=== PATIENT | female | born 1955 | race Caucasian/White ===

== ENCOUNTER → 2016-08-30 | Outpatient (CLI) | payer MEDICARE ==
[2016-08-30 09:20] LABS: ALT 27 U/L (9-52); AST 15 U/L (14-36); Alkaline Phosphatase 88 U/L (38-126); Anion Gap 9 mmol/L; Blood Urea Nitrogen 15 mg/dL (7-17); Calcium 9.2 mg/dL (8.4-10.2); Carbon Dioxide 30 mmol/L (22-30); Chloride 102 mmol/L (98-107); Cholesterol 153 mg/dL (<200); Glucose 213 mg/dL (74-99); HDL Cholesterol 44 mg/dL (40-60); Non-African American GFR(MDRD) >60 (>60 ml/min/1.73 sqM); Sodium 141 mmol/L (137-145); Total Bilirubin 0.9 mg/dL (0.2-1.3); Total Protein 7.1 g/dL (6.3-8.2); Triglycerides 208 mg/dL (<150)
== END | disposition home or self-care (01) ==
LOC: LABWHC1 08:26
PROVIDERS: ATTEND Internal Medicine Cardiovascular Disease
DX: E11.65 Type 2 diabetes mellitus with hyperglycemia (principal); E78.2 Mixed hyperlipidemia
CPT/HCPCS: 36415; 80053; 80061; 82043; 84443

== ENCOUNTER → 2016-12-05 | Outpatient (CLI) | payer MEDICARE ==
--- NOTE | 2016-12-05 15:41 | FL ---
EXAMINATION TYPE: FL barium enema w air contrast DATE OF EXAM: 12/05/2016 CLINICAL HISTORY: R19.5 positive hemacult R19.4 change in bowel habits TECHNIQUE: Air contrast barium enema study is performed. Barium was instilled into the colon from the rectum to the cecum with reflux into a normal-appearing appendix. COMPARISON: None. FINDINGS: Human Resources File Clerk view of the abdomen shows overall non-obstructive bowel gas pattern.No evidence of a ny mass or polyp, obstructing or constricting lesion throughout the colon. No significant diverticul ar disease is noted.Appendix was filled and appeared normal. No reflux into the terminal ileum. IMPRESSION: Normal barium enema study.
== END | disposition home or self-care (01) ==
LOC: RADFLMAIN 07:41
PROVIDERS: ATTEND Surgery
DX: R19.4 Change in bowel habit (principal); R19.5 Other fecal abnormalities; Z88.0 Allergy status to penicillin; Z88.2 Allergy status to sulfonamides; Z88.8 Allergy status to other drugs, medicaments and biological substances
CPT/HCPCS: 74280

== ENCOUNTER → 2017-01-10 | Outpatient (CLI) | payer MEDICARE ==
[2017-01-10 14:57] LABS: Aty Lym Flag Marked; CH 31.1; HCT 43.3 % (34.0-46.0); HDW 3.21; HGB 14.4 gm/dL (11.4-16.0); MCHC 33.3 g/dL (31.0-37.0); MCV 86.9 fL (80.0-100.0); MPO Flag Slight; Mean Platelet Volume 7.5; RBC 4.98 m/uL (3.80-5.40); RDW 14.4 % (11.5-15.5); WBC 5.4 k/uL (3.8-10.6); WBC (Perox) 5.23
[2017-01-10 15:21] LABS: Add Differential Manual Differential
[2017-01-10 15:22] LABS: Nucleated Red Blood Cells 0 /100 WBC (0-0); Polychromasia Present; Total Cells Counted 100
== END | disposition home or self-care (01) ==
LOC: LABWHC1 14:21
PROVIDERS: ATTEND Surgery
DX: K57.30 Diverticulosis of large intestine without perforation or abscess without bleeding (principal)
CPT/HCPCS: 36415; 85025

== ENCOUNTER → 2017-02-13 | Outpatient (CLI) | payer MEDICARE ==
[2017-02-13 18:19] LABS: Blood Urea Nitrogen 15 mg/dL (7-17); Non-African American GFR(MDRD) >60 (>60 ml/min/1.73 sqM)
--- NOTE | 2017-02-13 19:52 | CT ---
EXAMINATION TYPE: CT abdomen pelvis w con DATE OF EXAM: 02/13/2017 HISTORY: LLQ pain x6 months. Diverticulitis per order. CT DLP: 1041mGycm Automated Exposure Control for Dose Reduction was Utilized. CONTRAST: CT scan of the abdomen and pelvis is performed with IV Contrast, patient injected with 100 mL of Omni paque 300. COMPARISON: CT abdomen and pelvis January 27, 2015. FINDINGS: LUNG BASES: Coronary stent RCA distribution is redemonstrated. Emphysematous change in lung bases is seen. Small right basilar nodule is not clearly identified on current study. LIVER/GB: Contracted gallbladder is seen this is presumed product of recent meal ingestion as debris and contrast filled stomach is noted. PANCREAS: No significant abnormality is seen. SPLEEN: No significant abnormality is seen. ADRENALS: No significant abnormality is seen. KIDNEYS: No significant abnormality is seen. BOWEL: Oral contrast reaches level of terminal ileum. There is no suspicious small or large bowel dil atation. There are few diverticula in the sigmoid colon. There is no CT evidence for acute diverticul itis. There is 1.6 cm diverticulum medially along second portion of duodenum. UTERUS/ADNEXA: Uterus is surgically absent or markedly atrophic in appearance. Left-sided pelvic phle boliths are noted. LYMPH NODES: No greater than 1cm abdominal or pelvic lymph nodes are appreciated. OSSEOUS STRUCTURES: There is mild multilevel spurring in the visualized spine. OTHER: There is mild to moderate mixed plaque in the abdominal aorta extending into pelvic branch ves sels. Soft tissue nodules in the anterior abdominal wall likely product of subcutaneous medicine inje ction are redemonstrated. IMPRESSION: No significant new or acute finding is seen to account for patient's clinical symptoms.
== END | disposition home or self-care (01) ==
LOC: RADCTMAIN 17:38
PROVIDERS: ATTEND Surgery
DX: K57.53 Diverticulitis of both small and large intestine without perforation or abscess with bleeding (principal)
CPT/HCPCS: 82565; 84520; 74177; 36415; Q9967

== ENCOUNTER → 2017-03-21 | Outpatient (CLI) | payer MEDICARE ==
--- NOTE | 2017-03-22 11:43 | MM ---
Reason for exam: screening (asymptomatic). Last mammogram was performed 1 year ago. History: Patient is postmenopausal. Family history of premenopausal breast cancer in maternal cousin at age 20. Benign stereotactic core biopsy of the right breast, August 27, 2000. Took estrogen for 5 years. Took progesterone for 5 years. Physical Findings: A clinical breast exam by your physician is recommended on an annual basis and results should be correlated with mammographic findings. MG 3D Screening Mammo W/Cad Bilateral CC and MLO view(s) were taken. Prior study comparison: March 20, 2016, bilateral MG 3d screening mammo w/cad. March 18, 2015, bilateral MG 3d screening mammo w/cad. There are scattered fibroglandular densities. Finding: There are typically benign round calcifications in both breasts. Previous mammotome biopsy in the right breast. There is no discrete abnormality. ASSESSMENT: Benign, BI-RAD 2 RECOMMENDATION: Routine screening mammogram of both breasts in 1 year.
== END | disposition home or self-care (01) ==
LOC: RADMAMWWP 11:08
PROVIDERS: ATTEND Family Medicine
DX: Z12.31 Encounter for screening mammogram for malignant neoplasm of breast (principal)
CPT/HCPCS: 77063; G0202

== ENCOUNTER → 2017-03-21 | Outpatient (CLI) | payer MEDICARE ==
[2017-03-21 11:04] LABS: ALT 37 U/L (9-52); AST 17 U/L (14-36); Alkaline Phosphatase 87 U/L (38-126); Anion Gap 8 mmol/L; Blood Urea Nitrogen 13 mg/dL (7-17); Calcium 9.3 mg/dL (8.4-10.2); Carbon Dioxide 27 mmol/L (22-30); Chloride 109 mmol/L (98-107); Cholesterol 137 mg/dL (<200); Glucose 140 mg/dL (74-99); HDL Cholesterol 39 mg/dL (40-60); Non-African American GFR(MDRD) >60 (>60 ml/min/1.73 sqM); Potassium 4.7 mmol/L (3.5-5.1); Sodium 144 mmol/L (137-145); Total Bilirubin 0.7 mg/dL (0.2-1.3); Total Protein 6.4 g/dL (6.3-8.2)
[2017-03-21 14:34] LABS: Urine Creatinine 76.3 mg/dL
== END | disposition home or self-care (01) ==
LOC: LABWHC1 09:39
PROVIDERS: ATTEND Internal Medicine Endocrinology, Diabetes & Metabolism
DX: E11.65 Type 2 diabetes mellitus with hyperglycemia (principal)
CPT/HCPCS: 36415; 80053; 80061; 82043; 82570; 83036

== ENCOUNTER → 2017-11-26 | Outpatient (CLI) | payer MEDICARE ==
[2017-11-26 10:19] LABS: ALT 34 U/L (9-52); AST 18 U/L (14-36); Cholesterol 159 mg/dL (<200); HDL Cholesterol 42 mg/dL (40-60); LDL Cholesterol,Calculated 87 mg/dL (0-99); Triglycerides 150 mg/dL (<150)
== END ==
LOC: LABWHC1 09:16
PROVIDERS: ATTEND Internal Medicine Cardiovascular Disease
DX: E78.2 Mixed hyperlipidemia (principal)
CPT/HCPCS: 36415; 80061; 84450; 84460

== ENCOUNTER → 2018-03-22 | Outpatient (CLI) | payer MEDICARE ==
--- NOTE | 2018-03-25 11:44 | MM ---
Reason for exam: screening (asymptomatic). Last mammogram was performed 1 year ago. History: Patient is postmenopausal. Family history of premenopausal breast cancer in maternal cousin at age 20. Benign stereotactic core biopsy of the right breast, August 27, 2000. Took estrogen for 5 years. Took progesterone for 5 years. Physical Findings: A clinical breast exam by your physician is recommended on an annual basis and results should be correlated with mammographic findings. MG 3D Screening Mammo W/Cad Bilateral CC and MLO view(s) were taken. Prior study comparison: March 21, 2017, bilateral MG 3d screening mammo w/cad. March 20, 2016, bilateral MG 3d screening mammo w/cad. There are scattered fibroglandular densities. No significant changes when compared with prior studies. ASSESSMENT: Benign, BI-RAD 2 RECOMMENDATION: Routine screening mammogram of both breasts in 1 year.
== END ==
LOC: RADMAMWWP 08:49
PROVIDERS: ATTEND Family Medicine
DX: Z12.31 Encounter for screening mammogram for malignant neoplasm of breast (principal)
CPT/HCPCS: 77063; 77067

== ENCOUNTER → 2018-06-21 | Outpatient (CLI) | payer MEDICARE ==
[2018-06-21 16:51] LABS: Albumin 4.2 g/dL (3.80-4.90); Albumin/Globulin Ratio 2.1 (1.60-3.17); Anion Gap 6.3 mmol/L (4.00-12.00); Calcium 9.3 mg/dL (8.7-10.3); Carbon Dioxide 27.7 mmol/L (21.6-31.8); LDL Cholesterol,Calculated 78.4 mg/dL (0.0-131.0); Potassium 4.9 mmol/L (3.5-5.5); Total Bilirubin 0.9 mg/dL (0.3-1.2); Total Protein 6.2 g/dL (6.2-8.2); VLDL Calculation 31.6 mg/dL (5.00-40.00)
[2018-06-21 19:52] LABS: Hemoglobin A1C 6.4 % (4.0-6.0)
== END | disposition home or self-care (01) ==
LOC: LABWHC1 10:18
PROVIDERS: ATTEND Internal Medicine Endocrinology, Diabetes & Metabolism
DX: E78.2 Mixed hyperlipidemia (principal); E11.65 Type 2 diabetes mellitus with hyperglycemia
CPT/HCPCS: 36415; 80053; 80061; 82043; 82570; 83036; 84443

== ENCOUNTER → 2018-09-23 | Outpatient (CLI) | payer MEDICARE ==
[2018-09-23 16:11] LABS: Albumin 4.3 g/dL (3.80-4.90); Albumin/Globulin Ratio 2.26 (1.60-3.17); Anion Gap 7.1 mmol/L (4.00-12.00); Carbon Dioxide 26.9 mmol/L (21.6-31.8); Globulin 1.9 g/dL (1.6-3.3); LDL Cholesterol,Calculated 77.6 mg/dL (0.0-131.0); Potassium 4.5 mmol/L (3.5-5.5); Total Bilirubin 0.8 mg/dL (0.2-1.2); Total Protein 6.2 g/dL (6.2-8.2); VLDL Calculation 29.4 mg/dL (5.00-40.00)
[2018-09-23 19:40] LABS: Hemoglobin A1C 6.2 % (4.0-6.0)
== END | disposition home or self-care (01) ==
LOC: LABWHC1 08:56
PROVIDERS: ATTEND Internal Medicine Endocrinology, Diabetes & Metabolism
DX: E11.65 Type 2 diabetes mellitus with hyperglycemia (principal)
CPT/HCPCS: 36415; 80053; 80061; 82043; 82570; 83036; 84443

== ENCOUNTER → 2019-05-01 | Outpatient (CLI) | payer MEDICARE ==
--- NOTE | 2019-05-02 14:08 | MM ---
Reason for exam: screening (asymptomatic). Last mammogram was performed 1 year and 1 month ago. History: Patient is postmenopausal. Family history of premenopausal breast cancer in maternal cousin at age 20. Benign stereotactic core biopsy of the right breast, August 27, 2000. Took estrogen for 5 years. Took progesterone for 5 years. Physical Findings: A clinical breast exam by your physician is recommended on an annual basis and results should be correlated with mammographic findings. MG 3D Screening Mammo W/Cad Bilateral CC and MLO view(s) were taken. Prior study comparison: March 22, 2018, bilateral MG 3d screening mammo w/cad. March 21, 2017, bilateral MG 3d screening mammo w/cad. There are scattered fibroglandular densities. Previous mammotome biopsy in the right breast. No significant changes when compared with prior studies. ASSESSMENT: Benign, BI-RAD 2 RECOMMENDATION: Routine screening mammogram of both breasts in 1 year.
== END | disposition home or self-care (01) ==
LOC: RADMAMWWP 14:53
PROVIDERS: ATTEND Family Medicine
DX: Z12.31 Encounter for screening mammogram for malignant neoplasm of breast (principal)
CPT/HCPCS: 77063; 77067

== ENCOUNTER → 2019-05-16 | Outpatient (CLI) | payer MEDICARE ==
[2019-05-16 18:15] LABS: African American GFR (CKD) 91.6 (60.0-200.0); Albumin 4.3 g/dL (3.80-4.90); Albumin/Globulin Ratio 2.69 (1.60-3.17); Anion Gap 8.8 mmol/L (4.00-12.00); BUN/Creat Ratio 21.25 Ratio (12.00-20.00); Carbon Dioxide 25.2 mmol/L (21.6-31.8); Globulin 1.6 g/dL (1.6-3.3); LDL Cholesterol,Calculated 63.8 mg/dL (0.0-131.0); Potassium 4.5 mmol/L (3.5-5.5); Total Bilirubin 0.8 mg/dL (0.3-1.2); Total Protein 5.9 g/dL (6.2-8.2); VLDL Calculation 38.2 mg/dL (5.00-40.00)
[2019-05-16 20:03] LABS: Hemoglobin A1C 6.5 % (4.0-6.0)
== END | disposition home or self-care (01) ==
LOC: LABWHC1 07:58
PROVIDERS: ATTEND Internal Medicine Endocrinology, Diabetes & Metabolism
DX: E11.65 Type 2 diabetes mellitus with hyperglycemia (principal)
CPT/HCPCS: 36415; 80053; 80061; 82043; 82570; 83036; 84443

== ENCOUNTER → 2020-01-05 | Outpatient (CLI) | payer MEDICARE ==
[2020-01-05 15:26] LABS: African American GFR (CKD) 90.9 (60.0-200.0); Albumin 4.3 g/dL (3.80-4.90); Albumin/Globulin Ratio 2.15 (1.60-3.17); Anion Gap 7.1 mmol/L (4.00-12.00); Calcium 9.1 mg/dL (8.7-10.3); Carbon Dioxide 25.9 mmol/L (21.6-31.8); Chol/HDL Ratio 4.19; LDL Cholesterol,Calculated 79.2 mg/dL (0.0-131.0); Non-African American GFR(CKD) 78.5 (60.0-200.0); Potassium 4.4 mmol/L (3.5-5.5); Total Bilirubin 0.7 mg/dL (0.2-1.2); Total Protein 6.3 g/dL (6.2-8.2); VLDL Calculation 38.8 mg/dL (5.00-40.00)
[2020-01-05 16:20] LABS: Hemoglobin A1C 7.2 % (4.0-6.0)
[2020-01-05 19:45] LABS: Microalbumin Creatinine Ratio <30 mg/g Creat (0-30)
== END | disposition home or self-care (01) ==
LOC: LABWHC1 10:14
PROVIDERS: ATTEND Internal Medicine Endocrinology, Diabetes & Metabolism
DX: E11.65 Type 2 diabetes mellitus with hyperglycemia (principal)
CPT/HCPCS: 36415; 80053; 80061; 82043; 82570; 83036; 84443

== ENCOUNTER → 2020-03-19 | Outpatient (CLI) | payer MEDICARE ==
--- NOTE | 2020-03-19 10:21 | US ---
EXAMINATION TYPE: US venous doppler duplex LE DATE OF EXAM: 03/19/2020 9:27 AM COMPARISON: NONE CLINICAL HISTORY: R60.0 edema. SIDE PERFORMED: Bilateral TECHNIQUE: The lower extremity deep venous system is examined utilizing real time linear array sonog aixa with graded compression, doppler sonography and color-flow sonography. VESSELS IMAGED: External Iliac Vein (EIV) Common Femoral Vein Deep Femoral Vein Greater Saphenous Vein * Femoral Vein Popliteal Vein Small Saphenous Vein * Proximal Calf Veins (* superficial vessels) Right Leg: Negative for DVT Left Leg: Negative for DVT IMPRESSION: 1. Bilateral lower extremity ultrasound negative for deep venous thrombosis.
== END | disposition home or self-care (01) ==
LOC: RADUSWWP 08:45
PROVIDERS: ATTEND Family Medicine
DX: R60.0 Localized edema (principal); I73.9 Peripheral vascular disease, unspecified
CPT/HCPCS: 93922; 93923; 93970

== ENCOUNTER → 2020-05-19 | Outpatient (CLI) | payer MEDICARE ==
--- NOTE | 2020-05-20 09:18 | MM ---
Reason for exam: additional evaluation requested from prior study. Last mammogram was performed 1 year and 1 month ago. History: Patient is postmenopausal. Family history of premenopausal breast cancer in maternal cousin at age 20. Benign stereotactic core biopsy of the right breast, August 27, 2000. Took estrogen for 5 years. Took progesterone for 5 years. Physical Findings: Nurse did not find any significant physical abnormalities on exam. MG 3D Diag Mammo W/Cad SINGH Bilateral CC and MLO view(s) were taken. Prior study comparison: May 01, 2019, bilateral MG 3d screening mammo w/cad. March 22, 2018, bilateral MG 3d screening mammo w/cad. There are scattered fibroglandular densities. There are benign appearing round calcifications in the right breast. Previous mammotome biopsy in the right breast. There is chronic nodularity in the right breast. There is no discrete abnormality. These results were verbally communicated with the patient and result sheet given to the patient on 05/19/20. ASSESSMENT: Benign, BI-RAD 2 RECOMMENDATION: Routine screening mammogram of both breasts in 1 year.
== END | disposition home or self-care (01) ==
LOC: RADMAMWWP 14:05
PROVIDERS: ATTEND Family Medicine
DX: N60.11 Diffuse cystic mastopathy of right breast (principal); N60.12 Diffuse cystic mastopathy of left breast
CPT/HCPCS: 77066; G0279; 77062

== ENCOUNTER → 2020-07-02 | Outpatient (CLI) | payer MEDICARE ==
[2020-07-02 16:00] LABS: African American GFR (CKD) 78.9 (60.0-200.0); Albumin 4.4 g/dL (3.80-4.90); Albumin/Globulin Ratio 2.44 (1.60-3.17); Anion Gap 4.6 mmol/L (4.00-12.00); BUN/Creat Ratio 14.44 Ratio (12.00-20.00); Calcium 8.7 mg/dL (8.7-10.3); Carbon Dioxide 26.4 mmol/L (21.6-31.8); Chol/HDL Ratio 3.89; Globulin 1.8 g/dL (1.6-3.3); LDL Cholesterol,Calculated 69.8 mg/dL (0.0-131.0); Potassium 4.5 mmol/L (3.5-5.5); Total Bilirubin 0.7 mg/dL (0.3-1.2); Total Protein 6.2 g/dL (6.2-8.2); VLDL Calculation 34.2 mg/dL (5.00-40.00)
[2020-07-02 17:53] LABS: Hemoglobin A1C 6.7 % (4.0-6.0)
[2020-07-02 19:14] LABS: Microalbumin Creatinine Ratio <30 mg/g Creat (0-30)
== END | disposition home or self-care (01) ==
LOC: LABWHC1 09:32
PROVIDERS: ATTEND Internal Medicine Endocrinology, Diabetes & Metabolism
DX: E11.65 Type 2 diabetes mellitus with hyperglycemia (principal)
CPT/HCPCS: 36415; 80053; 80061; 82043; 82570; 83036; 84443

== ENCOUNTER → 2021-01-24 | Outpatient (CLI) | payer MEDICARE ==
[2021-01-24 17:16] LABS: African American GFR (CKD) 90.3 (60.0-200.0); Albumin 4.3 g/dL (3.80-4.90); Albumin/Globulin Ratio 1.95 (1.60-3.17); Anion Gap 6.4 mmol/L (4.00-12.00); BUN/Creat Ratio 12.5 Ratio (12.00-20.00); Calcium 9.3 mg/dL (8.7-10.3); Carbon Dioxide 27.6 mmol/L (21.6-31.8); Chol/HDL Ratio 3.78; Globulin 2.2 g/dL (1.6-3.3); LDL Cholesterol,Calculated 66.6 mg/dL (0.0-131.0); Non-African American GFR(CKD) 77.9 (60.0-200.0); Potassium 5.2 mmol/L (3.5-5.5); Total Bilirubin 0.8 mg/dL (0.2-1.2); Total Protein 6.5 g/dL (6.2-8.2); VLDL Calculation 36.4 mg/dL (5.00-40.00)
[2021-01-24 20:15] LABS: Hemoglobin A1C 6.8 % (4.0-6.0)
== END | disposition home or self-care (01) ==
LOC: LABWHC1 10:45
PROVIDERS: ATTEND Internal Medicine Cardiovascular Disease
DX: E11.65 Type 2 diabetes mellitus with hyperglycemia (principal); E78.2 Mixed hyperlipidemia
CPT/HCPCS: 36415; 80053; 80061; 82043; 82570; 83036; 84443

== ENCOUNTER → 2021-04-11 | Outpatient (CLI) | payer MEDICARE ==
--- NOTE | 2021-04-11 10:01 | CT ---
EXAMINATION TYPE: CT chest wo con DATE OF EXAM: 04/11/2021 COMPARISON: 06/14/2015 HISTORY: Persistent severe asthma CT DLP: 282.6 mGycm, Automated exposure control for dose reduction was used. CONTRAST: None TECHNIQUE: Axial images were obtained at 5 mm thick sections. Reconstructed images are reviewed on [employer] computer in the coronal plane. FINDINGS: Portion of the thyroid visualized is normal. No suspicious lung nodules or focal infiltrates are present. Emphysematous changes are present. No enlarged mediastinal or hilar adenopathy is evident. The ascending aorta diameter at the level o f the main pulmonary artery is 3.0 cm. The main pulmonary artery diameter at the bifurcation is 2.1 cm. Coronary artery calcification is present. Limited CT sections are obtained through the upper abdomen. Abdomen is essentially unremarkable. IMPRESSIONS: 1. COPD.
== END | disposition home or self-care (01) ==
LOC: RADCTMAIN 07:24
PROVIDERS: ATTEND Internal Medicine Pulmonary Disease
DX: J44.9 Chronic obstructive pulmonary disease, unspecified (principal)
CPT/HCPCS: 71250

== ENCOUNTER → 2021-08-25 | Outpatient (CLI) | payer MEDICARE ==
[2021-08-25 15:35] LABS: ALT 21 U/L (8-44); AST 17 U/L (13-35); African American GFR (CKD) 90.3 (60.0-200.0); Albumin 4.5 g/dL (3.8-4.9); Albumin/Globulin Ratio 2.25 (1.60-3.17); Alkaline Phosphatase 94 U/L (41-126); Calcium 9.3 mg/dL (8.7-10.3); Carbon Dioxide 23.8 mmol/L (20.0-27.5); Chloride 108 mmol/L (96-109); Chol/HDL Ratio 4.48 Ratio; Glucose 203 mg/dL (70-110); LDL Cholesterol,Calculated 83.3 mg/dL (0.0-131.0); Non-African American GFR(CKD) 77.9 (60.0-200.0); Potassium 4.9 mmol/L (3.5-5.5); Sodium 144 mmol/L (135-145); Total Protein 6.5 g/dL (6.2-8.2)
[2021-08-25 20:20] LABS: Microalbumin Creatinine Ratio <30 mg/g Creat (0-30); Urine Creatinine 67.1 mg/dL (28.0-217.0)
== END | disposition home or self-care (01) ==
LOC: LABWHC1 09:26
PROVIDERS: ATTEND Internal Medicine Endocrinology, Diabetes & Metabolism
DX: E11.65 Type 2 diabetes mellitus with hyperglycemia (principal)
CPT/HCPCS: 36415; 80053; 80061; 82043; 82570; 83036; 84443

== ENCOUNTER → 2022-03-23 | Outpatient (CLI) | payer MEDICARE ==
[2022-03-23 14:37] LABS: ALT 18 U/L (8-44); AST 18 U/L (13-35); African American GFR (CKD) 77.6 (60.0-200.0); Albumin 4.4 g/dL (3.8-4.9); Albumin/Globulin Ratio 1.91 (1.60-3.17); Alkaline Phosphatase 80 U/L (41-126); BUN/Creat Ratio 14.41 Ratio (12.00-20.00); Calcium 9.4 mg/dL (8.7-10.3); Carbon Dioxide 25.6 mmol/L (20.0-27.5); Chloride 110 mmol/L (96-109); Chol/HDL Ratio 3.25 Ratio; Globulin 2.3 g/dL (1.6-3.3); Glucose 169 mg/dL (70-110); LDL Cholesterol,Calculated 61.6 mg/dL (0.0-131.0); Non-African American GFR(CKD) 66.9 (60.0-200.0); Potassium 5.4 mmol/L (3.5-5.5); Sodium 144 mmol/L (135-145); Total Protein 6.8 g/dL (6.2-8.2)
[2022-03-23 19:37] LABS: Microalbumin Creatinine Ratio <30 mg/g Creat (0-30); Urine Creatinine 82.4 mg/dL (28.0-217.0)
== END | disposition home or self-care (01) ==
LOC: LABWHC1 09:14
PROVIDERS: ATTEND Internal Medicine Cardiovascular Disease
DX: E11.65 Type 2 diabetes mellitus with hyperglycemia (principal); E78.2 Mixed hyperlipidemia
CPT/HCPCS: 36415; 80053; 80061; 82043; 82570; 83036; 84443

== ENCOUNTER 2022-04-04 08:36 | Day surgery (SDC) | payer MEDICARE ==
[~2022-04-04 08:36] MED LIST: LACTATED RINGERS 1,000 ML IV SCH; LIDOCAINE 1% (10MG/ML) FOR IV START INTRADERMA PRN
[2022-04-04 09:27] VITALS: RESP 16; TEMP 96.7
[2022-04-04 09:30] LABS: Glucose,Whole Blood 183 mg/dL (70-110)
[2022-04-04] MEDS ORDERED: LIDOCAINE 2% INJ 20 MG/ML (2 ML VIAL) ONE (09:44)
[2022-04-04] MEDS ORDERED: PROPOFOL 10 MG/ML 20 ML VIAL IV ONE (09:44)
--- NOTE | 2022-04-04 10:12 | P.PCN ---
Date of Procedure: 04/04/22 Procedure(s) Performed: BRIEF HISTORY: Patient is a 67-year-old pleasant female scheduled for an elective colonoscopy as a part of evaluation of lower abdominal pain and intermittent rectal bleeding for the last few months duration. PROCEDURE PERFORMED: Colonoscopy with biopsy. PREOPERATIVE DIAGNOSIS: Lower abdominal pain and intermittent rectal bleeding. IV sedation per Anesthesia. PROCEDURE: After informed consent was obtained, the patient, was brought into the endoscopy unit. IV sedation was administered by Anesthesia under continuous monitoring. Digital rectal examination was normal. Initially the Olympus CF-160 flexible video colonoscope was then inserted in the rectum, gradually advanced into the cecum with moderate difficulty. Careful examination was performed as the scope was gradually being withdrawn. Ileocecal valve and the appendiceal orifice were visualized and appeared normal. Prep was excellent. Mucosa of the cecum, ascending colon, transverse colon, descending colon, sigmoid colon, and rectum appeared normal. In the proximal rectum there was a 3 mm polyp that was removed by cold biopsy. Scattered sigmoid diverticulosis seen. Retroflexion was performed in the rectum and small internal hemorrhoids were seen. The patient tolerated the procedure well. IMPRESSION: 3 mm rectal polyp status post cold biopsy Scattered sigmoid diverticulosis Small internal hemorrhoids RECOMMENDATIONS: Findings of this examination were discussed with the patient the use family. She was advised to follow with the biopsy results. If the biopsy reveals adenoma she can have a repeat colonoscopy in 5 years. The meantime she'll be on a high-fiber diet and take fiber supplements a regular basis..
[2022-04-04 10:26] VITALS: BP 118/78; PULSE 89
== END 2022-04-04 10:56 | disposition home or self-care (01) ==
LOC: ORWHC2ENDO 08:36
PROVIDERS: ATTEND Internal Medicine Gastroenterology
DX: R10.30 Lower abdominal pain, unspecified (principal); K62.1 Rectal polyp; K57.30 Diverticulosis of large intestine without perforation or abscess without bleeding; K62.5 Hemorrhage of anus and rectum; K64.8 Other hemorrhoids
CPT/HCPCS: 88305; 45380; J2704; J2001

== ENCOUNTER → 2022-06-12 | Outpatient (CLI) | payer MEDICARE ==
[2022-06-12 15:54] LABS: ALT 22 U/L (8-44); AST 15 U/L (13-35); African American GFR (CKD) 77.8 (60.0-200.0); Albumin 4.5 g/dL (3.8-4.9); Albumin/Globulin Ratio 2.37 (1.60-3.17); Alkaline Phosphatase 81 U/L (41-126); BUN/Creat Ratio 17.33 Ratio (12.00-20.00); Blood Urea Nitrogen 15.6 mg/dL (9.0-27.0); Calcium 9.5 mg/dL (8.7-10.3); Carbon Dioxide 24.9 mmol/L (20.0-27.5); Chloride 109 mmol/L (96-109); Chol/HDL Ratio 3.01 Ratio; Globulin 1.9 g/dL (1.6-3.3); Glucose 195 mg/dL (70-110); LDL Cholesterol,Calculated 51.6 mg/dL (0.0-131.0); Non-African American GFR(CKD) 67.1 (60.0-200.0); Potassium 5.1 mmol/L (3.5-5.5); Sodium 144 mmol/L (135-145); Total Protein 6.4 g/dL (6.2-8.2)
[2022-06-12 20:05] LABS: Urine Creatinine 59.8 mg/dL (28.0-217.0)
== END | disposition home or self-care (01) ==
LOC: LABWHC1 10:00
PROVIDERS: ATTEND Internal Medicine Endocrinology, Diabetes & Metabolism
DX: E11.65 Type 2 diabetes mellitus with hyperglycemia (principal)
CPT/HCPCS: 36415; 80053; 80061; 82043; 82570; 83036; 84443

== ENCOUNTER → 2022-06-12 | Outpatient (CLI) | payer MEDICARE ==
--- NOTE | 2022-06-13 08:42 | MM ---
Reason for Exam: Screening (asymptomatic). Last screening mammogram was performed 12 month(s) ago. Patient History: Menarche at age 14. First Full-Term at age 19. Hysterectomy at age 45. Postmenopausal. Patient used Estrogen for 5 years. Patient used Progesterone for 5 years. 08/27/2000, Benign Stereotactic Core Biopsy on the right side. Maternal cousin had breast cancer, age 20. Risk Values: Ruthann 5 year model risk: 1.4%. NCI Lifetime model risk: 5.4%. Prior Study Comparison: 05/01/2019 Bilateral Screening Mammogram, [facility]. 05/19/2020 Bilateral Diagnostic Mammogram, [facility]. 06/09/2021 Bilateral Screening Mammogram, [facility]. Tissue Density: The breast tissue is heterogeneously dense. This may lower the sensitivity of mammography. Findings: Analyzed By CAD. Right breast biopsy clip. There is no suspicious group of microcalcifications or new suspicious mass in either breast. Overall Assessment: Negative, BI-RAD 1 Management: Screening Mammogram of both breasts in 1 year. A clinical breast exam by your physician is recommended on an annual basis and results should be correlated with mammographic findings. [facility] will attempt to contact patient to return for supplemental views and ultrasound if indicated. Electronically signed and approved by: Joe Steward DO
== END | disposition home or self-care (01) ==
LOC: RADMAMWWP 09:41
PROVIDERS: ATTEND Family Medicine
DX: Z12.31 Encounter for screening mammogram for malignant neoplasm of breast (principal); Z78.0 Asymptomatic menopausal state; Z80.3 Family history of malignant neoplasm of breast
CPT/HCPCS: 77063; 77067

== ENCOUNTER → 2022-08-17 | Outpatient (CLI) | payer MEDICARE ==
--- NOTE | 2022-08-17 17:12 | BD ---
EXAMINATION TYPE: Axial Bone Density DATE OF EXAM: 08/17/2022 CLINICAL HISTORY: 67 years old Female. ICD-10 CODE: Z78.0 ASYMPTOMATIC MENOPAUSAL STATE Height: 64.4 Weight: 149 FRAX RISK QUESTIONS: Family History (Parent hip fracture): yes, no hip fx Glucocorticoids (More than 3mos): yes (Ex: prednisone, prednisolone, methylprednisolone, dexamethasone, and hydrocortisone). Secondary Osteoporosis: yes 3. Menopause before 45: yes RISK FACTORS HISTORY OF: Family History of Osteoporosis: yes, mother Postmenopausal woman: yes, at age 40 yrs old Take estrogen and/or progesterone medications: yes, for about only 1 yr, none now Hyperparathyroidism: no Adrenal Insufficiency: no MEDICATIONS: Prednisone or other steroids: yes, for copd for over 20 yrs Additional Medications: bp meds, reflux meds, statin for cholesterol, Jardiance, Trulicity, type 2 di abetic, vit d Additional History: hypertension, reflux, diabetic, cholesterol, copd, EXAM MEASUREMENTS: Bone mineral densitometry was performed using the [employer] System. Bone mineral density as measured about the Lumbar spine is: ----- L1-L4(G/cm2): 1.081 T Score Values are as follows: ----- L1: -1.2 ----- L2: -1.6 ----- L3: -0.1 ----- L4: -0.7 ----- L1-L4: -0.8 Z Score Values are as follows: ----- L1: 0.3 ----- L2: -0.1 ----- L3: 1.4 ----- L4: 0.8 ----- L1-L4: 0.7 Bone mineral density is a baseline study today. Bone mineral density about the R hip (g/cm2): 0.738 Bone mineral density about the L hip (g/cm2): 0.750 T Score values are as follows: -----R Neck: -2.1 -----L Neck: -2.3 -----R Total: -2.1 -----L Total: -2.0 Z Score values are as follows: -----R Neck: -0.7 -----L Neck: -0.9 -----R Total: -1.0 -----L Total: -0.9 Bone mineral density is a baseline study today. FRAX%s: The graph provided illustrates a 20.1% chance for a major osteoporotic fx and a 4.6% chance f or the hips probability for fx in 10 years time. IMPRESSION: Osteopenia (T Score between -2.5 and -1). There is slightly increased risk of fracture and the patient may be considered for treatment. Re-Screen 2-5 years. NOTE: T-SCORE=SD OF THE YOUNG ADULT MEAN.
== END | disposition home or self-care (01) ==
LOC: RADBDWWP 08:25
PROVIDERS: ATTEND Family Medicine
DX: M85.89 Other specified disorders of bone density and structure, multiple sites (principal); I10 Essential (primary) hypertension; E11.9 Type 2 diabetes mellitus without complications; Z78.0 Asymptomatic menopausal state
CPT/HCPCS: 77080

== ENCOUNTER → 2022-09-25 | Outpatient (CLI) | payer MEDICARE ==
[2022-09-25 16:18] LABS: ALT 15 U/L (8-44); AST 17 U/L (13-35); African American GFR (CKD) 82.7 (60.0-200.0); Albumin 4.2 g/dL (3.8-4.9); Albumin/Globulin Ratio 1.87 (1.60-3.17); Alkaline Phosphatase 99 U/L (41-126); BUN/Creat Ratio 14.74 Ratio (12.00-20.00); Blood Urea Nitrogen 12.6 mg/dL (9.0-27.0); Calcium 9.4 mg/dL (8.7-10.3); Carbon Dioxide 25.1 mmol/L (20.0-27.5); Chloride 109 mmol/L (96-109); Chol/HDL Ratio 3.21 Ratio; Globulin 2.3 g/dL (1.6-3.3); Glucose 183 mg/dL (70-110); LDL Cholesterol,Calculated 44.6 mg/dL (0.0-131.0); Non-African American GFR(CKD) 71.4 (60.0-200.0); Potassium 5.3 mmol/L (3.5-5.5); Sodium 143 mmol/L (135-145); Total Protein 6.5 g/dL (6.2-8.2)
[2022-09-25 19:46] LABS: Microalbumin Creatinine Ratio <30 mg/g Creat (0-30); Urine Creatinine 90.9 mg/dL (28.0-217.0)
== END | disposition home or self-care (01) ==
LOC: LABWHC1 09:00
PROVIDERS: ATTEND Internal Medicine Cardiovascular Disease
DX: E78.2 Mixed hyperlipidemia (principal); E11.65 Type 2 diabetes mellitus with hyperglycemia
CPT/HCPCS: 36415; 80053; 80061; 82043; 82570; 83036; 84443

== ENCOUNTER → 2022-12-29 | Outpatient (CLI) | payer MEDICARE ==
[2022-12-29 16:45] LABS: ALT 20 U/L (8-44); AST 16 U/L (13-35); Albumin 4.5 d/dL (3.8-4.9); Albumin/Globulin Ratio 2.14 Ratio (1.60-3.17); Alkaline Phosphatase 85 U/L (41-126); BUN/Creat Ratio 14.33 Ratio (12.00-20.00); Blood Urea Nitrogen 12.9 mg/dL (9.0-27.0); Calcium 9.2 mg/dL (8.7-10.3); Carbon Dioxide 25.9 mmol/L (21.6-31.8); Chloride 110 mmol/L (96-109); Chol/HDL Ratio 3.44 Ratio; Globulin 2.1 d/dL (1.6-3.3); Glucose 152 mg/dL (70-110); LDL Cholesterol,Calculated 57.2 mg/dL (0.0-131.0); Potassium 5.2 mmol/L (3.5-5.5); Sodium 145 mmol/L (135-145); Total Bilirubin 0.6 mg/dL (0.3-1.2); Total Protein 6.6 d/dL (6.2-8.2)
[2022-12-29 18:54] LABS: Microalbumin Creatinine Ratio <11 mg/g Cr (0-30)
== END | disposition home or self-care (01) ==
LOC: LABWHC1 09:49
PROVIDERS: ATTEND Internal Medicine Endocrinology, Diabetes & Metabolism
DX: E11.65 Type 2 diabetes mellitus with hyperglycemia (principal)
CPT/HCPCS: 36415; 80053; 80061; 82043; 82570; 83036; 84443

== ENCOUNTER → 2023-04-06 | Outpatient (CLI) | payer MEDICARE ==
[2023-04-06 16:34] LABS: ALT 16 U/L (8-44); AST 16 U/L (13-35); Albumin 4.2 g/dL (3.8-4.9); Alkaline Phosphatase 79 U/L (41-126); BUN/Creat Ratio 15.89 Ratio (12.00-20.00); Blood Urea Nitrogen 14.3 mg/dL (9.0-27.0); Calcium 9.5 mg/dL (8.7-10.3); Chloride 110 mmol/L (96-109); Chol/HDL Ratio 2.84 Ratio; Glucose 179 mg/dL (70-110); LDL Cholesterol,Calculated 51.3 mg/dL (0.0-131.0); Potassium 4.9 mmol/L (3.5-5.5); Sodium 145 mmol/L (135-145); Total Bilirubin 0.5 mg/dL (0.3-1.2); Total Protein 6.2 g/dL (6.2-8.2)
[2023-04-06 19:54] LABS: Microalbumin Creatinine Ratio <13 mg/g Cr (0-30); Urine Creatinine 89.4 mg/dL (28.0-217.0)
== END | disposition home or self-care (01) ==
LOC: LABWHC1 09:07
PROVIDERS: ATTEND Internal Medicine Cardiovascular Disease
DX: E11.65 Type 2 diabetes mellitus with hyperglycemia (principal); E78.2 Mixed hyperlipidemia
CPT/HCPCS: 36415; 80053; 80061; 82043; 82570; 83036; 84443

== ENCOUNTER → 2023-05-17 | Outpatient (CLI) | payer MEDICARE ==
--- NOTE | 2023-05-18 11:13 | MR ---
EXAM: MR wrist RT wo con DATE OF EXAM: 05/17/2023 COMPARISON: Right wrist radiograph 05/15/2023 HISTORY: Right wrist pain, and limited movement for about 4 months TECHNIQUE: Multiplanar, multisequence images of the right wrist were acquired without contrast. FINDINGS: BONES/JOINTS: Normal bone marrow signal. Normal alignment. No ulnar variance. Distal radioulnar joint is normal. No joint effusion. LIGAMENTS: Scapholunate and lunotriquetral ligaments are normal. Extrinsic carpal ligaments are maile l. Tear of the TFCC at the volar radial ulnar ligament. TENDONS: Flexor tendons are normal. Fluid within the second extensor compartment and the intersection of the second and third extensor co mpartments, may relate to tenosynovitis and distal intersection syndrome, respectively. Partial intrasubstance tear of the third extensor digitorum tendon, approximately 1.5 cm in length. R emainder of the extensor digitorum tendons are intact. Increased fluid within the fourth extensor com partment, relating to tenosynovitis. SOFT TISSUES: Nonspecific subcutaneous edema dorsum of the hand. Carpal tunnel is normal. Guyon's can al is normal. No bursal distention. Small distal radioulnar joint effusion. Increased fluid within th e mid carpal row.. NEUROVASCULAR: The median nerve is normal in size, signal, and location. The ulnar nerve is normal in size, signal, and location. Vascular structures are normal OTHER: Normal. IMPRESSION: 1. Second extensor compartment tenosynovitis. 2. 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 3. Partial intrasubstance tear of the third digit extensor digitorum tendon. Third extensor compartme nt tenosynovitis. 4. TFCC tear involving the volar radial ulnar ligament. Associated distal radioulnar joint effusion.
== END | disposition home or self-care (01) ==
LOC: RADMRIMAIN 11:16
PROVIDERS: ATTEND Orthopaedic Surgery Hand Surgery
DX: M24.831 Other specific joint derangements of right wrist, not elsewhere classified (principal); M65.841 Other synovitis and tenosynovitis, right hand; M25.431 Effusion, right wrist

== ENCOUNTER → 2023-06-13 | Outpatient (CLI) | payer MEDICARE ==
--- NOTE | 2023-06-14 08:30 | MM ---
Reason for Exam: Screening (asymptomatic). Last screening mammogram was performed 12 month(s) ago. Patient History: Menarche at age 14. First Full-Term at age 19. Hysterectomy at age 45. Postmenopausal. Patient used Estrogen for 5 years. Patient used Progesterone for 5 years. 08/27/2000, Benign Stereotactic Core Biopsy on the right side. Maternal cousin had breast cancer, age 20. Risk Values: Ruthann 5 year model risk: 1.4%. NCI Lifetime model risk: 5.2%. Prior Study Comparison: 05/19/2020 Bilateral Diagnostic Mammogram, [facility]. 06/09/2021 Bilateral Screening Mammogram, [facility]. 06/12/2022 Bilateral MG 3D screening mammo w/cad, [facility]. Tissue Density: The breast tissue is almost entirely fat. Findings: Analyzed By CAD. Right breast biopsy clip. There is no suspicious group of microcalcifications or new suspicious mass. Benign-appearing calcifications right breast. Overall Assessment: Benign, BI-RAD 2 Management: Screening Mammogram of both breasts in [address] [facility] will attempt to contact patient to return for supplemental views and ultrasound if indicated. Patient should continue monthly self-breast exams. A clinical breast exam by your physician is recommended on an annual basis. This exam should not preclude additional follow-up of suspicious palpable abnormalities. Note on Ruthann scores and lifetime risk: 1. A Ruthann score greater than 3% is considered moderate risk. If this is the case, consider specialist referral to assess eligibility for a risk reducing agent. 2. If overall lifetime risk for the development of breast cancer is 20% or higher, the patient may qualify for future screening with alternating mammogram and breast MRI. Electronically signed and approved by: Joe Steward DO
== END | disposition home or self-care (01) ==
LOC: RADMAMWWP 12:32
PROVIDERS: ATTEND Family Medicine
DX: Z12.31 Encounter for screening mammogram for malignant neoplasm of breast (principal); Z80.3 Family history of malignant neoplasm of breast; Z78.0 Asymptomatic menopausal state
CPT/HCPCS: 77063; 77067

== ENCOUNTER → 2023-11-19 | Outpatient (CLI) | payer MEDICARE ==
[2023-11-19 16:31] LABS: ALT 16 U/L (8-44); AST 19 U/L (13-35); Albumin 4.2 g/dL (3.8-4.9); Alkaline Phosphatase 100 U/L (41-126); Calcium 9.1 mg/dL (8.7-10.3); Carbon Dioxide 22.6 mmol/L (21.6-31.8); Chloride 106 mmol/L (96-109); Chol/HDL Ratio 6.89 Ratio; Glucose 200 mg/dL (70-110); LDL Cholesterol,Calculated 152.8 mg/dL (0.0-131.0); Potassium 4.8 mmol/L (3.5-5.5); Sodium 141 mmol/L (135-145); Total Bilirubin 0.7 mg/dL (0.3-1.2); Total Protein 6.2 g/dL (6.2-8.2)
[2023-11-19 22:01] LABS: Microalbumin Creatinine Ratio <16 mg/g Cr (0-30)
== END | disposition home or self-care (01) ==
LOC: LABWHC1 09:19
PROVIDERS: ATTEND Internal Medicine Endocrinology, Diabetes & Metabolism
DX: E78.2 Mixed hyperlipidemia (principal); E11.65 Type 2 diabetes mellitus with hyperglycemia
CPT/HCPCS: 36415; 80053; 80061; 82043; 82570; 83036; 84443

== ENCOUNTER → 2024-02-29 | Outpatient (CLI) | payer MEDICARE ==
[2024-02-29 15:48] LABS: ALT 18 U/L (8-44); AST 18 U/L (13-35); Albumin 4.3 g/dL (3.8-4.9); Albumin/Globulin Ratio 2.26 Ratio (1.60-3.17); Alkaline Phosphatase 99 U/L (41-126); Blood Urea Nitrogen 11.7 mg/dL (9.0-27.0); Calcium 9.2 mg/dL (8.7-10.3); Carbon Dioxide 25.5 mmol/L (21.6-31.8); Chloride 109 mmol/L (96-109); Chol/HDL Ratio 3.15 Ratio; Globulin 1.9 g/dL (1.6-3.3); Glucose 162 mg/dL (70-110); LDL Cholesterol,Calculated 55.8 mg/dL (0.0-131.0); Potassium 4.6 mmol/L (3.5-5.5); Sodium 144 mmol/L (135-145); Total Bilirubin 0.6 mg/dL (0.3-1.2); Total Protein 6.2 g/dL (6.2-8.2)
[2024-02-29 21:34] LABS: Microalbumin Creatinine Ratio <19 mg/g Cr (0-30); Urine Creatinine 64.7 mg/dL (28.0-217.0)
== END | disposition home or self-care (01) ==
LOC: LABWHC1 08:47
PROVIDERS: ATTEND Internal Medicine Endocrinology, Diabetes & Metabolism
DX: E11.65 Type 2 diabetes mellitus with hyperglycemia (principal)
CPT/HCPCS: 36415; 80053; 80061; 82043; 82570; 83036; 84443

== ENCOUNTER → 2024-03-26 | Outpatient (CLI) | payer MEDICARE ==
--- NOTE | 2024-03-26 22:34 | XR ---
EXAMINATION TYPE: XR hand complete RT DATE OF EXAM: 03/26/2024 12:03 PM COMPARISON: None. CLINICAL INDICATION: Female, 69 years old with history of HAND PAIN, TECHNIQUE: 3 view(s) obtained. FINDINGS: No acute fracture or dislocation evident. Joint spaces are preserved. Soft tissues appear normal. Follow up exams can be performed 7-10 days from acute trauma for continued pain IMPRESSION: 1. No acute osseous abnormality right hand [facility], , 03/26/2024 10:32 PM
== END | disposition home or self-care (01) ==
LOC: RADXRMAIN 11:50
PROVIDERS: ATTEND Family Medicine
DX: M79.641 Pain in right hand (principal)

== ENCOUNTER → 2024-04-11 | Outpatient (CLI) | payer MEDICARE ==
[2024-04-11 09:43] LABS: African American GFR (CKD) >90 (>60 ml/min/1.73 sqM); Blood Urea Nitrogen 12 mg/dL (7-17); Non-African American GFR(CKD) 80 (>60 ml/min/1.73 sqM)
--- NOTE | 2024-04-11 11:22 | CT ---
CT thorax without contrast. HISTORY: Pulmonary nodules. COMPARISON: 04/11/2021. TECHNIQUE: Multiple axial images are obtained through the thorax without the use of IV contrast mater ial. FINDINGS: There are marked emphysematous changes with an upper lobe predominance. There are diffuse stable scattered sub-3 mm nodules. No new or suspicious lung mass or nodule is seen . There is no airspace consolidation. There is no abnormal interstitial density. There is no pleural effusion or pneumothorax. The great vessels the chest are normal and is no mediastinal, hilar or axillary adenopathy. Limited scanning through the upper abdomen reveals no gross abnormality. No focal osseous lesions are seen. IMPRESSION: 1. Marked emphysematous changes. 2. Few stable scattered 3 mm nodules. No new or suspicious lung mass or nodule. 3. No acute cardiopulmonary disease. [facility], , 04/11/2024 11:19 AM
== END | disposition home or self-care (01) ==
LOC: RADCTMAIN 09:05
PROVIDERS: ATTEND Family Medicine
DX: J43.9 Emphysema, unspecified (principal); R91.1 Solitary pulmonary nodule
CPT/HCPCS: 82565; 84520; 71260; 36415; Q9967

== ENCOUNTER → 2024-07-14 | Outpatient (CLI) | payer MEDICARE ==
[2024-07-14 09:15] LABS: ALT 20 U/L (4-34); AST 18 U/L (14-36); African American GFR (CKD) 82 (>60 ml/min/1.73 sqM); Albumin 4.3 g/dL (3.5-5.0); Albumin/Globulin Ratio 1.7; Alkaline Phosphatase 80 U/L (38-126); Anion Gap 9 mmol/L; Blood Urea Nitrogen 16 mg/dL (7-17); Calcium 9.4 mg/dL (8.4-10.2); Carbon Dioxide 27 mmol/L (22-30); Chloride 106 mmol/L (98-107); Globulin 2.5 g/dL; Glucose 183 mg/dL (74-99); Non-African American GFR(CKD) 71 (>60 ml/min/1.73 sqM); Sodium 142 mmol/L (137-145); Total Bilirubin 0.9 mg/dL (0.2-1.3); Total Protein 6.8 g/dL (6.3-8.2)
[2024-07-14 16:17] LABS: Chol/HDL Ratio 3.72 Ratio
[2024-07-14 19:05] LABS: Microalbumin Creatinine Ratio <14 mg/g Cr (0-30); Urine Creatinine 85.6 mg/dL (28.0-217.0)
== END | disposition home or self-care (01) ==
LOC: LABWHC1 07:33
PROVIDERS: ATTEND Internal Medicine Endocrinology, Diabetes & Metabolism
DX: E11.65 Type 2 diabetes mellitus with hyperglycemia (principal); E78.2 Mixed hyperlipidemia
CPT/HCPCS: 36415; 80053; 80061; 82043; 82570; 83036; 84443

== ENCOUNTER 2024-08-06 19:27 | Inpatient (IN) | payer MEDICARE ==
[2024-08-06 20:12] LABS: ALT 22 U/L (4-34); AST 29 U/L (14-36); African American GFR (CKD) >90 (>60 ml/min/1.73 sqM); Albumin 4.3 g/dL (3.5-5.0); Alkaline Phosphatase 84 U/L (38-126); Anion Gap 12 mmol/L; Blood Urea Nitrogen 13 mg/dL (7-17); Calcium 8.9 mg/dL (8.4-10.2); Carbon Dioxide 18 mmol/L (22-30); Chloride 108 mmol/L (98-107); Glucose 319 mg/dL (74-99); Non-African American GFR(CKD) >90 (>60 ml/min/1.73 sqM); Potassium 4.8 mmol/L (3.5-5.1); Sodium 138 mmol/L (137-145); Total Bilirubin 0.9 mg/dL (0.2-1.3); Total Protein 6.8 g/dL (6.3-8.2)
[2024-08-06 20:25] LABS: Prothrombin Time 10.8 sec (10.0-12.5)
[2024-08-06 20:31] LABS: Partial Thromboplastin Time 19.2 sec (22.0-30.0)
[2024-08-06 20:32] LABS: HCT 45.6 % (34.0-46.0); HGB 15.4 gm/dL (11.4-16.0); MCH 29.7 pg (25.0-35.0); MCHC 33.9 g/dL (31.0-37.0); MCV 87.8 fL (80.0-100.0); Mean Platelet Volume 7.3; Platelet Count 172 k/uL (150-450); RBC 5.19 m/uL (3.80-5.40); RDW 13.2 % (11.5-15.5); WBC 5.5 k/uL (3.8-10.6)
--- NOTE | 2024-08-06 20:32 | XR ---
EXAMINATION TYPE: XR chest 2V DATE OF EXAM: 08/06/2024 CLINICAL INDICATION: Female, 69 years old with history of Chest Pain, TECHNIQUE: Frontal and lateral views of the chest are obtained. COMPARISON: Chest CT April 11, 2024 FINDINGS: Background chronic emphysematous change is redemonstrated There is no focal air space opac ity, pleural effusion, or pneumothorax seen. The cardiac silhouette size is within normal limits. The osseous structures are intact. IMPRESSION: Chronic emphysematous change without acute pulmonary process. [facility], , 08/06/2024 8:30 PM
[2024-08-06] MEDS: SODIUM CHLORIDE 0.9% 1,000 ML IV ONE ×2 (20:47→22:25)
[2024-08-06] MEDS: ASPIRIN 81 MG PO STA (20:47)
[2024-08-06] MEDS: NITROGLYCERIN SL TABS 0.4 MG TAB SUBLINGUAL STA ×2 (20:47→21:17)
[2024-08-06] MEDS: IPRATROPIUM-ALBUTEROL 3 ML NEB INHALATION STA (20:53)
[2024-08-06 20:55] LABS: Basophils # (M) 0.06 k/uL (0-0.2); Lymphocytes # (M) 0.83 k/uL (1.0-4.8); Neutrophils # (M) 4.62 k/uL (1.3-7.7); Neutrophils % (M) 84 %; Nucleated Red Blood Cells 0 /100 WBC (0-0); Total Cells Counted 100
[2024-08-06 20:57] LABS: RBC Morphology Normal
[2024-08-06 21:02] LABS: Glucose,Whole Blood 242 mg/dL (70-110)
[2024-08-06] MEDS: MORPHINE SULFATE 4 MG/ML SYRINGE IVP STA (21:43)
[2024-08-06] MEDS: HEPARIN SOD,PORK IN 0.45% NACL 25,000 UNIT in 0.45% NACL 1 250ML.BAG IV SCH (21:49)
[2024-08-06] MEDS: HEPARIN SODIUM 1,000 UN/ML (10ML VL) IV ONE (21:49)
[2024-08-06] MEDS ORDERED: NALOXONE 0.4 MG/ML 1 ML VIAL IV PRN (22:28)
--- NOTE | 2024-08-06 22:32 | ED ---
General Adult HPI - General Chief complaint: Chest Pain Stated complaint: Chest Pain Time Seen by Provider: 08/06/24 19:52 Source: patient, RN notes reviewed, old records reviewed Mode of arrival: EMS Limitations: no limitations - History of Present Illness Initial comments: Patient is a 69-year-old female presents emergency department complaint of chest pain. Has a history of CAD, COPD, diabetes, GERD. Also history of hyperlipidemia. Has a history of multiple cardiac stents. States he has had chest pain since Sunday. Describes as right sided squeezing sensation with radiation to the right neck. States that it is intermittent and comes and goes. Worsened this evening at around 5 however it never has completely gone away since Sunday. It is currently Sunday. Symptoms have been ongoing for the last 5 days. Denies any shortness of breath, diaphoresis, nausea or vomiting with it. Nitroglycerin tablets she took at home did nothing for the pain. Presents for further evaluation at this time. - Related Data Home Medications Medication Instructions Recorded Confirmed Albuterol Inhaler [Ventolin 2 puff INHALATION Q6HR PRN 09/26/13 04/04/22 Inhaler] Cholecalciferol [Vitamin D3] 1,000 unit PO DAILY 09/26/13 04/04/22 Cyanocobalamin [Vitamin B-12] 500 mcg PO DAILY 09/26/13 04/04/22 Famotidine [Pepcid] 40 mg PO HS 09/26/13 04/04/22 lisinopriL [Zestril] 5 mg PO HS 09/26/13 04/04/22 Atorvastatin [Lipitor] 20 mg PO HS 03/31/22 04/04/22 Canagliflozin [Invokana] 300 mg PO QAM 03/31/22 04/04/22 Dulaglutide [Trulicity] 1.5 mg SQ SA 03/31/22 04/04/22 Ezetimibe [Zetia] 10 mg PO HS 03/31/22 04/04/22 Allergies Allergy/AdvReac Type Severity Reaction Status Date / Time niacin Allergy Rash/Hives Verified 08/06/24 19:40 Penicillins Allergy Anaphylaxis Verified 08/06/24 19:40 sulfamethoxazole Allergy Rash/Hives Verified 08/06/24 19:40 [From Bactrim] trimethoprim [From Bactrim] Allergy Rash/Hives Verified 08/06/24 19:40 Review of Systems ROS Statement: Those systems with pertinent positive or pertinent negative responses have been documented in the HPI. Review of Systems: CONST: Denies fever EYES: Denies blurry vision ENT: Denies nasal congestion C/V: Endorses chest pain RESP: Denies shortness of breath GI: Denies abdominal pain : Denies dysuria SKIN: Denies rash. MSK: Denies joint pain. NEURO: Denies headache ROS Other: All systems not noted in ROS Statement are negative. Past Medical History Past Medical History: Chest Pain / Angina, COPD, Diabetes Mellitus, GERD/Reflux, Hyperlipidemia, Hypertension, Myocardial Infarction ([place]), Respiratory Disorder Additional Past Medical History / Comment(s): Pulmonary Fibrosis, Hiatal Hernia, pt following with [facility] for possible lung transplant in future. HX CP ON/OFF. Last Myocardial Infarction Date:: 2007 History of Any Multi-Drug Resistant Organisms: None Reported Past Surgical History: Heart Catheterization With Stent, Hysterectomy, Orthopedic Surgery Additional Past Surgical History / Comment(s): CTR SINGH. Lung Biopsy. STENTS X4. Past Anesthesia/Blood Transfusion Reactions: Previous Problems w/ Anesthesia, Family History of Problems w/ Anesthesia Additional Past Anesthesia/Blood Transfusion Reaction / Comment(s): NAUSEA YEARS AGO; ALSO, MOTHER HAS PONV Date of Last Stent Placement:: 2007 Past Psychological History: No Psychological Hx Reported Smoking Status: Never smoker Past Alcohol Use History: None Reported Past Drug Use History: None Reported - Past Family History Brother(s) Family Medical History: Cancer, Deep Vein Thrombosis (DVT) Mother Sister(s) Family Medical History: Deep Vein Thrombosis (DVT), Pulmonary Embolus General Exam - General Exam Comments Initial Comments: General: Appears in mild distress. HEAD: Normal with no signs of head trauma. EYES: PERRLA, EOMI, conjunctiva normal, no discharge. ENT: Hearing grossly intact, normal oropharynx. RESPIRATORY: Clear breath sounds bilaterally. No wheezes, rales, or rhonchi. C/V: Regular rate and rhythm. S1 and S2 auscultated, no edema, peripheral pulses 2+ and intact throughout. Chest pain is somewhat reproducible on palpation but not with movement. ABD: Abd is soft, nontender, nondistended EXT: Normal range of motion, no obvious deformity SKIN: No rashes or lesions observed on exposed skin. NEURO: Alert and oriented x 4. Limitations: no limitations Course Vital Signs 08/06/24 08/06/24 08/06/24 19:38 20:53 21:05 Temperature 98.2 F Pulse Rate 105 H 94 95 Respiratory 18 16 Rate Blood Pressure 140/78 113/95 O2 Sat by Pulse 99 99 Oximetry 08/06/24 21:06 Temperature Pulse Rate 91 Respiratory Rate Blood Pressure O2 Sat by Pulse Oximetry Medical Decision Making - Medical Decision Making Was pt. sent in by a medical professional or institution (, PA, PACKAGING TECH, urgent care, hospital, or [place] health care facility...) When possible be specific @ -No Did you speak to anyone other than the patient for history (EMS, parent, family, police, friend...)? What history was obtained from this source @ -No Did you review nursing and triage notes (agree or disagree)? Why? @ -I reviewed and agree with nursing and triage notes Were old charts reviewed (outside hosp., previous admission, EMS record, old EKG, old radiological studies, urgent care reports/EKG's, [place] [facility] facility records)? Report findings @ -Old charts reviewed. I was unable to access any prior EKGs. Differential Diagnosis (chest pain, altered mental status, abdominal pain women, abdominal pain men, vaginal bleeding, weakness, fever, dyspnea, syncope, headache, dizziness, GI bleed, back pain, seizure, CVA, palpatations, mental health, musculoskeletal)? @ -Differential Chest Pain: Stable Angina, Unstable Angina, STEMI, NSTEMI Aortic Dissection, Pneumothorax, Musculoskeletal, Esophageal Spasm GERD, Cholecystitis, Pancreatitis, Zoster, this is not meant to be an all-inclusive list. EKG interpreted by me (3pts min.). @ -As above X-rays interpreted by me (1pt min.). @ -Chest x-ray reveals no obvious acute cardiopulmonary process. CT interpreted by me (1pt min.). @ -None done U/S interpreted by me (1pt. min.). @ -None done What testing was considered but not performed or refused? (CT, X-rays, U/S, labs)? Why? @ -None What meds were considered but not given or refused? Why? @ -None Did you discuss the management of the patient with other professionals (professionals i.e. , PA, PACKAGING TECH, lab, RT, psych nurse, psych social worker, logging equipment mechanic, teacher, officer captain, child support case officer)? Give summary @ -Discussed the case with the admitting provider, Dr. Spangler who accepted the admission. Discussed the case with cardiology, Dr. Irwin due to initially the continuing chest pain. As the chest pain was improved following morphine, he asked that we contact him if it worsens again and nitro drip could be initiated. Otherwise was in agreement plan for heparin drip for NSTEMI. Was smoking cessation discussed for >3mins.? @ -No Was critical care preformed (if so, how long)? @ -Yes, 36 minutes Were there social determinants of health that impacted care today? How? (Homelessness, low income, unemployed, alcoholism, drug addiction, transportation, low edu. Level, literacy, decrease access to med. care, assisted, rehab)? @ -No Was there de-escalation of care discussed even if they declined (Discuss DNR or withdrawal of care, Hospice)? DNR status @ -No What co-morbidities impacted this encounter? (DM, HTN, Smoking, COPD, CAD, Cancer, CVA, ARF, Chemo, Hep., AIDS, mental health diagnosis, sleep apnea, morbid obesity)? @ -CAD, hypertension Was patient admitted / discharged? Hospital course, mention meds given and route, prescriptions, significant lab abnormalities, going to OR and other p ertinent info. @ -Based on patient's presentation physical exam, presents emergency department complaining of chest pain for 5 days however worse today. Somewhat typical in nature except it is on the right side of her body and is also somewhat reproducible on palpation. Has radiation of the neck.. Does have a cardiac history. We will obtain cardiac workup. Took nitro at home with no improvem ent. Also will be given 324 mg of aspirin. Given a 1 L fluid bolus. Vital signs are within acceptable limits. EKG shows ST segment depressions. 2 additional EKGs obtained throughout her stay in the ER which showed no dynamic changes. No prior EKGs for comparison are available in our system. Chest x-ray showed no obvious acute cardiopulmonary process. Laboratory studies are remarkable for a mild elevated glucose of 3-19 but also an elevated troponin of 0.469. I discussed results with patient. Nitroglycerin tablets x 2 here in edition of the nitro at home did not significantly improve her pain. States it remains near a 8 or 9. Patient will be given a dose of morphine and started on a heparin drip for NSTEMI. Patient was in agreement this plan. Patient initially was sent out to cardiology when patient was still having chest pain after results. However after morphine, patient's pain did improve. I did discuss with Dr. Irwin when he did call back and he was in agreement with plan of management. Asked that we consider nitro drip if pain worsens. I discussed case with the admitting provider, Dr. Spangler who accepted the admission. Undiagnosed new problem with uncertain prognosis? @ -No Drug Therapy requiring intensive monitoring for toxicity (Heparin, Nitro, Insulin, Cardizem)? @ -Heparin Were any procedures done? @ -No Diagnosis/symptom? @ -NSTEMI Acute, or Chronic, or Acute on Chronic? @ -Acute Uncomplicated (without systemic symptoms) or Complicated (systemic symptoms)? @ -Complicated Side effects of treatment? @ -No Exacerbation, Progression, or Severe Exacerbation? @ -No Poses a threat to life or bodily function? How? (Chest pain, [place], [place], pneumonia, PE, COPD, DKA, ARF, appy, cholecystitis, CVA, Diverticulitis, Homicidal, Suicidal, threat to staff... and all critical care pts) @ -Yes - Lab Data Result diagrams: 08/06/24 19:53 08/06/24 19:53 Lab Results 08/06/24 08/06/24 08/06/24 Range/Units 19:53 19:53 19:53 WBC 5.5 (3.8-10.6) k/uL RBC 5.19 (3.80-5.40) m/uL Hgb 15.4 (11.4-16.0) gm/dL Hct 45.6 (34.0-46.0) % MCV 87.8 (80.0-100.0) fL MCH 29.7 (25.0-35.0) pg MCHC 33.9 (31.0-37.0) g/dL RDW 13.2 (11.5-15.5) % Plt Count 172 (150-450) k/uL MPV 7.3 Neutrophils % (Manual) 84 % Lymphocytes % (Manual) 15 % Basophils % (Manual) 1 % Neutrophils # (Manual) 4.62 (1.3-7.7) k/uL Lymphocytes # (Manual) 0.83 L (1.0-4.8) k/uL Basophils # (Manual) 0.06 (0-0.2) k/uL Nucleated RBCs 0 (0-0) /100 WBC Manual Slide Review Performed RBC Morphology Normal PT 10.8 (10.0-12.5) sec INR 1.0 (<1.2) APTT 19.2 L (22.0-30.0) sec Carbon Monoxide, Quant (<10.0) % Sodium 138 (137-145) mmol/L Potassium 4.8 (3.5-5.1) mmol/L Chloride 108 H (98-107) mmol/L Carbon Dioxide 18 L (22-30) mmol/L Anion Gap 12 mmol/L BUN 13 (7-17) mg/dL Creatinine 0.67 (0.52-1.04) mg/dL Est GFR (CKD-EPI)AfAm >90 (>60 ml/min/1.73 sqM) Est GFR (CKD-EPI)NonAf >90 (>60 ml/min/1.73 sqM) Glucose 319 H (74-99) mg/dL POC Glucose (mg/dL) (70-110) mg/dL POC Glu Wood Cutter ID Calcium 8.9 (8.4-10.2) mg/dL Magnesium 2.0 (1.6-2.3) mg/dL Total Bilirubin 0.9 (0.2-1.3) mg/dL AST 29 (14-36) U/L ALT 22 (4-34) U/L Alkaline Phosphatase 84 (38-126) U/L Troponin I (0.000-0.034) ng/mL Total Protein 6.8 (6.3-8.2) g/dL Albumin 4.3 (3.5-5.0) g/dL 08/06/24 08/06/24 08/06/24 Range/Units 19:53 20:46 21:01 WBC (3.8-10.6) k/uL RBC (3.80-5.40) m/uL Hgb (11.4-16.0) gm/dL Hct (34.0-46.0) % MCV (80.0-100.0) fL MCH (25.0-35.0) pg MCHC (31.0-37.0) g/dL RDW (11.5-15.5) % Plt Count (150-450) k/uL MPV Neutrophils % (Manual) % Lymphocytes % (Manual) % Basophils % (Manual) % Neutrophils # (Manual) (1.3-7.7) k/uL Lymphocytes # (Manual) (1.0-4.8) k/uL Basophils # (Manual) (0-0.2) k/uL Nucleated RBCs (0-0) /100 WBC Manual Slide Review RBC Morphology PT (10.0-12.5) sec INR (<1.2) APTT (22.0-30.0) sec Carbon Monoxide, Quant 2.5 (<10.0) % Sodium (137-145) mmol/L Potassium (3.5-5.1) mmol/L Chloride (98-107) mmol/L Carbon Dioxide (22-30) mmol/L Anion Gap mmol/L BUN (7-17) mg/dL Creatinine (0.52-1.04) mg/dL Est GFR (CKD-EPI)AfAm (>60 ml/min/1.73 sqM) Est GFR (CKD-EPI)NonAf (>60 ml/min/1.73 sqM) Glucose (74-99) mg/dL POC Glucose (mg/dL) 242 H (70-110) mg/dL POC Glu Wood Cutter ID Victorina Handley Calcium (8.4-10.2) mg/dL Magnesium (1.6-2.3) mg/dL Total Bilirubin (0.2-1.3) mg/dL AST (14-36) U/L ALT (4-34) U/L Alkaline Phosphatase (38-126) U/L Troponin I 0.469 H* (0.000-0.034) ng/mL Total Protein (6.3-8.2) g/dL Albumin (3.5-5.0) g/dL - EKG Data -: EKG Interpreted by Me EKG Comments: 12-lead Electrocardiogram Interpretation Note EKG was reviewed and interpreted by myself. 12-lead ECG performed at 1936 is interpreted by me as revealing sinus tachycardia at a rate of 105 beats per minute. [place] is normal. [place] interval is 120 ms, QRS duration is 93 ms, QTc is 415 ms.. Patient does have ST segment depressions in leads V3 through V5. No significant reciprocal elevations or abnormalities.. R wave progression across the precordium was satisfactory. 12-lead Electrocardiogram Interpretation Note EKG was reviewed and interpreted by myself. 12-lead ECG performed at 2027 is interpreted by me as revealing normal sinus rhythm at a rate of 97 beats per minute. [place] is normal. [place] interval is 168 ms, QRS duration is 90 ms. QTc is [address] ms[address] of the [address] segment depressions V3 through V5. Still with no obvious reciprocal changes. R wave progression across the precordium was satisfactory. 12-lead Electrocardiogram Interpretation Note EKG was reviewed and interpreted by myself. 12-lead ECG performed at 2146 is interpreted by me as revealing normal sinus rhythm at a rate of 94 beats per minute. [place] is normal. [place] interval is 136 ms, QRS duration is 100 ms, QTc is 445 ms.. Redemonstration of the ST segment depressions in leads V3 through V5. No obvious dynamic changes when compared with prior EKGs from earlier. No obvious reciprocal changes present.. R wave progression across the precordium was satisfactory.. Critical Care Time Critical Care Time: Yes Total Critical Care Time: 36 Disposition Clinical Impression: NSTEMI (non-ST elevated myocardial infarction) Disposition: ADMITTED IP TO THIS HOSP Condition: Serious Referrals: Tee Wilder MD [Primary Care Provider] - 1-2 days Time of Disposition: 22:31
[2024-08-06] MEDS: SODIUM CHLORIDE 0.9% 1,000 ML IV STA (22:46)
--- NOTE | 2024-08-07 01:29 | P.HPIM ---
History of Present Illness H&P Date: 08/07/24 Patient is a 69-year-old female with a PMH of CAD status post multiple stents, COPD, type II DM, hyperlipidemia, GERD who presents to the emergency room for chest discomfort. Patient reports that she has been experiencing intermittent chest tightness over the past 5 days. Patient notes the pain is 8 out of 10 at maximal intensity, substernal, squeezing in nature, radiating to the right arm. Notes that the pain was initially intermittent and started on Sunday but that it worsened over the past 24 hours. Denies experiencing shortness of breath, fever, chills, cough, nausea, vomiting, dizziness, or palpitations. Reports that her pain is 4 out of 10 at the time of interview. EKG in the emergency room revealed sinus tachycardia at [address] segment depression in leads V3 to V5 as reviewed by me. Chest x-ray revealed findings of COPD. Laboratory evaluation revealed a troponin of 0.469, glucose 319, chloride 108, CO2 18. ED documentation reviewed and case discussed with ED provider. Review of systems: Pertinent positives and negatives as discussed in HPI, a complete review of systems was performed and all other systems are negative. Physical examination: Vital signs reviewed General: non toxic, no distress, appears at stated age, normal weight Derm: no unusual rashes/lesions, warm Head: atraumatic, normocephalic, symmetric Eyes: EOMI, no lid lag, anicteric sclera, pupils equal round reactive to light ENT: Nose and ears atraumatic Neck: No cervical lymphadenopathy, trachea midline, supple Mouth: no lip lesion, mucus membranes moist Cardiovascular: S1S2 reg, no murmur, positive dorsalis pedis pulse bilateral, no edema Lungs: CTA bilateral, no rhonchi, no rales, no accessory muscle use Abdominal: soft, nontender to palpation, no guarding Ext: muscle strength 5 out of 5 in all 4 extremities grossly, no gross muscle atrophy, no contractures, Neuro: CN II-XI grossly intact, no gross focal neuro deficits Psych: Alert, oriented, appropriate affect Assessment: Non-ST elevation [place] Chronic conditions: Type II DM, COPD, hyperlipidemia, GERD Imaging: EKG in the emergency room revealed sinus tachycardia at [address] segment depression in leads V3 to V5 as reviewed by me. Chest x-ray revealed findings of COPD. Data Review: Laboratory evaluation revealed a troponin of 0.469, glucose 319, chloride 108, CO2 18. Plan: Continue with heparin infusion Cardiology consulted Cardiac monitoring Continue with aspirin and statin Obtain echocardiogram Insulin sliding scale with blood glucose monitoring Continue with nitroglycerin Continue IV fluids with normal saline 100 mL/h DVT prophylaxis: Heparin infusion The patient is admitted with an anticipated greater than 2 midnight stay for evaluation of non-ST elevation [place] CODE STATUS: Full Code Discussed with: Patient Anticipated discharge place: Home Past Medical History Past Medical History: Chest Pain / Angina, COPD, Diabetes Mellitus, GERD/Reflux, Hyperlipidemia, Hypertension, Myocardial Infarction ([place]), Respiratory Disorder Additional Past Medical History / Comment(s): Pulmonary Fibrosis, Hiatal Hernia, pt following [facility] for possible lung transplant in future. HX CP ON/OFF. Last Myocardial Infarction Date:: 2007 History of Any Multi-Drug Resistant Organisms: None Reported Past Surgical History: Heart Catheterization With Stent, Hysterectomy, Orthopedic Surgery Additional Past Surgical History / Comment(s): CTR SINGH. Lung Biopsy. STENTS X4. Past Anesthesia/Blood Transfusion Reactions: Previous Problems w/ Anesthesia, Family History of Problems w/ Anesthesia Additional Past Anesthesia/Blood Transfusion Reaction / Comment(s): NAUSEA YEARS AGO; ALSO, MOTHER HAS PONV Date of Last Stent Placement:: 2007 Past Psychological History: No Psychological Hx Reported Smoking Status: Never smoker Past Alcohol Use History: None Reported Past Drug Use History: None Reported - Past Family History Brother(s) Family Medical History: Cancer, Deep Vein Thrombosis (DVT) Mother Sister(s) Family Medical History: Deep Vein Thrombosis (DVT), Pulmonary Embolus Medications and Allergies Home Medications Medication Instructions Recorded Confirmed Type Albuterol Inhaler [Ventolin 2 puff INHALATION Q6HR PRN 09/26/13 04/04/22 History Inhaler] Cholecalciferol [Vitamin D3] 1,000 unit PO DAILY 09/26/13 04/04/22 History Cyanocobalamin [Vitamin B-12] 500 mcg PO DAILY 09/26/13 04/04/22 History Famotidine [Pepcid] 40 mg PO HS 09/26/13 04/04/22 History lisinopriL [Zestril] 5 mg PO HS 09/26/13 04/04/22 History Atorvastatin [Lipitor] 20 mg PO HS 03/31/22 04/04/22 History Canagliflozin [Invokana] 300 mg PO QAM 03/31/22 04/04/22 History Dulaglutide [Trulicity] 1.5 mg SQ SA 03/31/22 04/04/22 History Ezetimibe [Zetia] 10 mg PO HS 03/31/22 04/04/22 History Allergies Allergy/AdvReac Type Severity Reaction Status Date / Time niacin Allergy Rash/Hives Verified 08/06/24 19:40 Penicillins Allergy Anaphylaxis Verified 08/06/24 19:40 sulfamethoxazole Allergy Rash/Hives Verified 08/06/24 19:40 [From Bactrim] trimethoprim [From Bactrim] Allergy Rash/Hives Verified 08/06/24 19:40 Physical Exam Vitals: Vital Signs Temp Pulse Resp BP Pulse Ox 08/06/24 23:18 89 16 122/97 97 08/06/24 21:06 91 08/06/24 21:05 95 16 113/95 99 08/06/24 20:53 94 08/06/24 19:38 98.2 F 105 H 18 140/78 99 Intake and Output 08/06/24 08/06/24 08/07/24 14:59 22:59 06:59 Other: Weight 64.864 kg Results CBC & Chem 7: 08/06/24 19:53 08/06/24 19:53 Labs: Abnormal Lab Results - Last 24 Hours (Table) 08/06/24 08/06/24 08/06/24 Range/Units 19:53 19:53 19:53 Lymphocytes # (Manual) 0.83 L (1.0-4.8) k/uL APTT 19.2 L (22.0-30.0) sec Chloride 108 H (98-107) mmol/L Carbon Dioxide 18 L (22-30) mmol/L Glucose 319 H (74-99) mg/dL POC Glucose (mg/dL) (70-110) mg/dL Troponin I (0.000-0.034) ng/mL 08/06/24 08/06/24 Range/Units 19:53 21:01 Lymphocytes # (Manual) (1.0-4.8) k/uL APTT (22.0-30.0) sec Chloride (98-107) mmol/L Carbon Dioxide (22-30) mmol/L Glucose (74-99) mg/dL POC Glucose (mg/dL) 242 H (70-110) mg/dL Troponin I 0.469 H* (0.000-0.034) ng/mL
[2024-08-07] MEDS: NITROGLYCERIN OINT 1 INCH/GM PACKET TOPICAL STA (02:54)
[2024-08-07 03:30] LABS: INR 3.2 (<1.2); Prothrombin Time 31.5 sec (10.0-12.5)
[2024-08-07 03:59] LABS: Partial Thromboplastin Time 111.9 sec (22.0-30.0)
[2024-08-07 07:29] LABS: Glucose,Whole Blood 91 mg/dL (70-110)
[2024-08-07] MEDS: INSULIN LISPRO (HumaLOG) 100 UNIT/ML 10 mL VL SQ SCH (07:33)
[2024-08-07 07:47] LABS: HCT 42.6 % (34.0-46.0); HGB 14.1 gm/dL (11.4-16.0); MCH 29.3 pg (25.0-35.0); MCV 88.8 fL (80.0-100.0); Mean Platelet Volume 7.1; Platelet Count 144 k/uL (150-450); RDW 13.4 % (11.5-15.5); WBC 10.1 k/uL (3.8-10.6)
[2024-08-07 07:58] LABS: ALT 24 U/L (4-34); AST 39 U/L (14-36); African American GFR (CKD) >90 (>60 ml/min/1.73 sqM); Albumin 3.7 g/dL (3.5-5.0); Alkaline Phosphatase 71 U/L (38-126); Anion Gap 7 mmol/L; Blood Urea Nitrogen 11 mg/dL (7-17); Calcium 8.4 mg/dL (8.4-10.2); Carbon Dioxide 23 mmol/L (22-30); Chloride 111 mmol/L (98-107); Glucose 99 mg/dL (74-99); Non-African American GFR(CKD) >90 (>60 ml/min/1.73 sqM); Potassium 4.3 mmol/L (3.5-5.1); Sodium 141 mmol/L (137-145); Total Bilirubin 0.8 mg/dL (0.2-1.3); Total Protein 5.9 g/dL (6.3-8.2)
[2024-08-07] MEDS: ASPIRIN 81 MG PO SCH (08:07)
[2024-08-07] MEDS: ACETAMINOPHEN TAB 325 MG TAB PO PRN (08:09)
[2024-08-07 08:54] LABS: Band Neutrophils % 2 %; Lymphocytes # (M) 1.11 k/uL (1.0-4.8); Monocytes # (M) 0.51 k/uL (0-1.0); Neutrophils % (M) 82 %; Nucleated Red Blood Cells 0 /100 WBC (0-0); Total Cells Counted 100
[2024-08-07 12:08] LABS: Glucose,Whole Blood 92 mg/dL (70-110)
[2024-08-07] MEDS: MORPHINE SULFATE 4 MG/ML SYRINGE IVP PRN (12:22)
[2024-08-07] MEDS: HEPARIN SODIUM 1,000 UN/ML (10ML VL) IV PRN (12:58)
--- NOTE | 2024-08-07 13:36 | P.CRDCN ---
History of Present Illness Consult date: 08/07/24 History of present illness: This is a 69-year-old female patient who is known to our service from before with a past medical history significant for CAD with prior stenting with unknown details performed long time ago as well as diabetes and hypertension and dyslipidemia. She presented to the emergency department complaining of chest discomfort started last almost a week ago. She describes discomfort as a squeezing sensation in the middle of the chest with radiation to the neck and radiation to the back associated with shortness of breath and sweating but no presyncope or syncope and no dizziness or lightheadedness and no feeling of heart racing or fluttering. She underwent further evaluation including an EKG showing sinus mechanism with diffuse ST segment changes concerning for ischemia as well as troponin came to be abnormal consistent with acute coronary syndrome. She was started on aspirin and statin and heparin and beta-brenna with curre ntly she is having chest discomfort about 3-4/10 in intensity. The chest x-ray did not show any acute abnormality. The rest of the blood work overall came in to be unremarkable with the physical examination is remarkable for regular rhythm with a systolic murmur at the right and left upper sternal border with clear breathing sounds bilaterally and no edema was noted in the lower extremities Assessment Acute non-ST ovation myocardial infarction History of CAD with prior stenting with unknown details Multiple comorbid conditions including diabetes and hypertension and dyslipidemia Plan Continue current medical regimen including anti-ischemic and antiplatelet and anticoagulation Proceed with coronary angiogram Obtain an echocardiogram with Doppler Follow-up with the patient Past Medical History Past Medical History: Chest Pain / Angina, COPD, Diabetes Mellitus, GERD/Reflux, Hyperlipidemia, Hypertension, Myocardial Infarction (IA), Respiratory Disorder Additional Past Medical History / Comment(s): Pulmonary Fibrosis, Hiatal Hernia, pt following with the [facility] for possible lung transplant in future. HX CP ON/OFF. Last Myocardial Infarction Date:: 2007 History of Any Multi-Drug Resistant Organisms: None Reported Past Surgical History: Heart Catheterization With Stent, Hysterectomy, Orthopedic Surgery Additional Past Surgical History / Comment(s): CTR SINGH. Lung Biopsy. STENTS X4. Past Anesthesia/Blood Transfusion Reactions: Previous Problems w/ Anesthesia, Family History of Problems w/ Anesthesia Additional Past Anesthesia/Blood Transfusion Reaction / Comment(s): NAUSEA YEARS AGO; ALSO, MOTHER HAS PONV Date of Last Stent Placement:: 2007 Past Psychological History: No Psychological Hx Reported Smoking Status: Never smoker Past Alcohol Use History: None Reported Past Drug Use History: None Reported - Past Family History Brother(s) Family Medical History: Cancer, Deep Vein Thrombosis (DVT) Mother Sister(s) Family Medical History: Deep Vein Thrombosis (DVT), Pulmonary Embolus Medications and Allergies Home Medications Medication Instructions Recorded Confirmed Type Famotidine [Pepcid] 40 mg PO HS 09/26/13 08/07/24 History Atorvastatin [Lipitor] 20 mg PO HS 03/31/22 08/07/24 History Ezetimibe [Zetia] 10 mg PO HS 03/31/22 08/07/24 History Dulaglutide [Trulicity] 4.5 mg SQ SA 08/07/24 08/07/24 History Empagliflozin [Jardiance] 25 mg PO DAILY 08/07/24 08/07/24 History Metoprolol Succinate (ER) [Toprol 50 mg PO HS 08/07/24 08/07/24 History Xl] Repaglinide [Prandin] 1 mg PO AC-BID 08/07/24 08/07/24 History lisinopriL [Zestril] 5 mg PO HS 08/07/24 08/07/24 History sitaGLIPtin [Januvia] 100 mg PO DAILY 08/07/24 08/07/24 History Allergies Allergy/AdvReac Type Severity Reaction Status Date / Time niacin Allergy Rash/Hives Verified 08/07/24 07:26 Penicillins Allergy Anaphylaxis Verified 08/07/24 07:26 sulfamethoxazole Allergy Rash/Hives Verified 08/07/24 07:26 [From Bactrim] trimethoprim [From Bactrim] Allergy Rash/Hives Verified 08/07/24 07:26 Physical Exam Vitals: Vital Signs Temp Pulse Resp BP BP Pulse Ox 08/07/24 08:00 18 124/75 96 08/07/24 07:29 79 16 124/88 95 08/07/24 06:13 98.2 F 77 18 109/65 96 08/07/24 04:28 79 16 114/76 95 08/07/24 01:42 85 16 126/62 96 08/06/24 23:18 89 16 122/97 97 08/06/24 21:06 91 08/06/24 21:05 95 16 113/95 99 08/06/24 20:53 94 08/06/24 19:38 98.2 F 105 H 18 140/78 99 Intake and Output 08/06/24 08/07/24 08/07/24 22:59 06:59 14:59 Intake Total 48.131 46.315 Balance 48.131 46.315 Intake: Intake, IV Titration 48.131 46.315 Amount Heparin Sod,Pork in 0.45% 48.131 46.315 NaCl 25,000 unit In 0.45 % NaCl 1 250ml.bag @ 12 UNITS/KG/HR 7.784 mls/hr IV .Q24H [facility] Rx#: [id number] Other: # Voids 1 Weight 64.864 kg Results 08/07/24 07:04 08/07/24 07:04 Cardiac Enzymes 08/06/24 08/06/24 08/07/24 Range/Units 19:53 19:53 00:41 AST 29 (14-36) U/L Troponin I 0.469 H* 1.070 H* (0.000-0.034) ng/mL 08/07/24 08/07/24 Range/Units 03:03 07:04 AST 39 H (14-36) U/L Troponin I 1.270 H* (0.000-0.034) ng/mL Coagulation 08/06/24 08/07/24 08/07/24 Range/Units 19:53 03:03 11:14 PT 10.8 31.5 H (10.0-12.5) sec APTT 19.2 L 111.9 H* 30.8 H (22.0-30.0) sec CBC 08/06/24 08/07/24 Range/Units 19:53 07:04 WBC 5.5 10.1 (3.8-10.6) k/uL RBC 5.19 4.80 (3.80-5.40) m/uL Hgb 15.4 14.1 (11.4-16.0) gm/dL Hct 45.6 42.6 (34.0-46.0) % Plt Count 172 144 L (150-450) k/uL Comprehensive Metabolic Panel 08/06/24 08/07/24 Range/Units 19:53 07:04 Sodium 138 141 (137-145) mmol/L Potassium 4.8 4.3 (3.5-5.1) mmol/L Chloride 108 H 111 H (98-107) mmol/L Carbon Dioxide 18 L 23 (22-30) mmol/L BUN 13 11 (7-17) mg/dL Creatinine 0.67 0.60 (0.52-1.04) mg/dL Glucose 319 H 99 (74-99) mg/dL Calcium 8.9 8.4 (8.4-10.2) mg/dL AST 29 39 H (14-36) U/L ALT 22 24 (4-34) U/L Alkaline Phosphatase 84 71 (38-126) U/L Total Protein 6.8 5.9 L (6.3-8.2) g/dL Albumin 4.3 3.7 (3.5-5.0) g/dL Current Medications Generic Name Dose Route Start Last Admin Trade Name Freq PRN Reason Stop Dose Admin Acetaminophen 650 mg 08/06/24 22:28 08/07/24 08:09 Acetaminophen Tab 325 Mg Tab PO 650 mg Q6HR PRN Administration Mild Pain or Fever > 100.5 Albuterol Sulfate 2.5 mg 08/06/24 23:06 Albuterol Nebulized 2.5 Mg/3 Ml INHALATION RT-Q6H PRN Dyspnea Aspirin 81 mg 08/07/24 09:00 08/07/24 08:07 Aspirin 81 Mg PO 81 mg DAILY STUART Administration Atorvastatin Calcium 40 mg 08/07/24 21:00 Atorvastatin 40 Mg Tab PO HS STUART Ezetimibe 10 mg 08/07/24 21:00 Ezetimibe 10 Mg Tab PO HS STUART Heparin Sodium (Porcine) 0 unit 08/06/24 21:12 08/07/24 12:58 Heparin Sodium 1,000 Un/Ml (10ml Vl) IV 3,243 unit PER PROTOCOL PRN Administration Low PTT Protocol Heparin Sodium/Sodium Chloride 250 mls @ 7.784 mls/hr 08/06/24 21:15 08/07/24 12:56 25,000 unit/ Sodium Chloride IV 9 units/kg/hr .Q24H STUART 5.838 mls/hr Administration Protocol 12 UNITS/KG/HR Insulin Human Lispro 0 unit 08/07/24 07:30 08/07/24 13:13 Insulin Lispro (Humalog) 100 Unit/Ml 10 Ml Vl SQ Not Given ACHS STUART Protocol Lisinopril 5 mg 08/07/24 21:00 Lisinopril 5 Mg Tab PO HS [facility] Metoprolol Succinate 50 mg 08/07/24 21:00 Metoprolol Succinate (Er) 50 Mg Tab.Er.24h PO HS [facility] Morphine Sulfate 4 mg 08/07/24 11:57 08/07/24 12:22 Morphine Sulfate 4 Mg/Ml Syringe IVP 4 mg Q6HR PRN Administration Pain Naloxone HCl 0.2 mg 08/06/24 22:28 Naloxone 0.4 Mg/Ml 1 Ml Vial IV Q2M PRN Opioid Reversal Ondansetron HCl 4 mg 08/06/24 22:28 Ondansetron 4 Mg/2 Ml Vial IVP Q8HR PRN Nausea And Vomiting Intake and Output 08/06/24 08/07/24 08/07/24 22:59 06:59 14:59 Intake Total 48.131 46.315 Balance 48.131 46.315 Intake: Intake, IV Titration 48.131 46.315 Amount Heparin Sod,Pork in 0.45% 48.131 46.315 NaCl 25,000 unit In 0.45 % NaCl 1 250ml.bag @ 12 UNITS/KG/HR 7.784 mls/hr IV .Q24H [facility] Rx#: [id number] Other: # Voids 1 Weight 64.864 kg 08/07/24 07:04 08/07/24 07:04
[2024-08-07] MEDS ORDERED: NITROGLYCERIN SL TABS 0.4 MG TAB SUBLINGUAL PRN (13:43)
[2024-08-07] MEDS: LIDOCAINE 1% INJ 10MG/ML (20 ML MDV) SQ ONE (14:24)
[2024-08-07] MEDS: ASPIRIN 81 MG PO ONE (14:24)
[2024-08-07] MEDS: VERAPAMIL SYRINGE (5 MG/10 ML) INTRAARTER ONE (14:25)
[2024-08-07] MEDS: MIDAZOLAM 2 MG/2 ML VIAL IVP ONE (14:25)
[2024-08-07] MEDS: fentaNYL (PF) 50 MCG/1 ML VIAL IVP ONE (14:25)
[2024-08-07] MEDS: SODIUM CHLORIDE 0.9% 1,000 ML IV ONE ×2 (14:25→15:12)
[2024-08-07] MEDS: HEPARIN SODIUM,PORCINE (1 ML) 2,500 UNIT in SODIUM CHLORIDE 0.9% 250 ML IRRIGATION PRN (14:26)
[2024-08-07] MEDS: HEPARIN SODIUM,PORCINE 10,000 UNIT in SODIUM CHLORIDE 0.9% 1,000 ML IRRIGATION PRN (14:26)
[2024-08-07] MEDS: HEPARIN SODIUM 1,000 UN/ML (10ML VL) IVP ONE (14:31)
[2024-08-07] MEDS: TICAGRELOR 90 MG TAB PO ONE (14:51)
[2024-08-07] MEDS: NITROGLYCERIN 1000MCG/10ML SYRINGE INTRACORON ONE (14:59)
[2024-08-07] MEDS: IOPAMIDOL-370 100ML BTL INJ ONE ×2 (15:04→15:11)
[2024-08-07] MEDS ORDERED: ATROPINE SULFATE 0.1 MG/ML 10ML SYRINGE IV PRN (15:12)
[2024-08-07] MEDS ORDERED: ZOLPIDEM 5 MG TAB PO PRN (15:12)
[2024-08-07] MEDS ORDERED: RX INFO: IV CONTRAST WAS GIVEN 1 EACH MISC MISCELLANE PRN (15:12)
[2024-08-07] MEDS ORDERED: MAG HYDROX/AL HYDROX/SIMETH 30 ML CUP PO PRN (15:12)
--- NOTE | 2024-08-07 15:14 | P.PCN ---
Date of Procedure: 08/07/24 Operative Findings: PERCUTANEOUS CORONARY INTERVENTION Performing physician Jim Beckman M.D. Procedure Performed: 1. Successful stenting of the mid LCx using 2.25 x 15 mm Xience drug-eluting stent with an excellent angiographic results. 2. Adjunctive use of IVUS Indication: Acute non-ST elevation myocardial infarction Approach: Right radial art Complications: None Level of Sedation: Moderate with a sedation length of 22 minutes Procedure Discussion: Please refer to diagnostic heart catheterization was performed earlier with anticoagulation was initiated using heparin with continuous ACT monitoring. The patient was loaded with Brilinta. Subsequently I did engage the left main using JL 3.5 guiding catheter. The LCx was wired using a run-through wire. IVUS was performed and showed a diameter between 2.25 to 2.5 mm. I did predilated using 2.0 mm balloon before I deployed 2.25 x 15 mm stent which was postdilated using 2.5 mm NC balloon with final angiogram showing good angiographic results with YESENIA-3 flow and the procedure was completed with no complication Postprocedure Management: 1. Dual antiplatelet therapy using aspirin and Brilinta for at least 12-month 2. Aggressive cholesterol control 3. Risk factors modification
[2024-08-07] MEDS: IV FLUID CONTINUATION 1,000 ML IV ONE ×2 (15:26→15:30)
[2024-08-07 15:34] LABS: Glucose,Whole Blood 109 mg/dL (70-110)
[2024-08-07] MEDS: ACETAMINOPHEN TAB 500 MG TAB PO STA (18:00)
[2024-08-07] MEDS: SODIUM CHLORIDE 0.9% 1,000 ML in EMPTY BAG 1 BAG IV SCH (18:16)
[2024-08-07 19:16] LABS: Glucose,Whole Blood 219 mg/dL (70-110)
--- NOTE | 2024-08-07 20:51 | CC ---
CARDIAC CATHETERIZATION REPORT INDICATION: Acute non ST-segment elevation LA. PROCEDURE NOTE: After obtaining informed consent, left heart catheterization and coronary angiogram were performed via the right radial artery using standard Emi catheters. The patient tolerated the procedure well without any obvious immediate complications. The patient received moderate conscious sedation. Total sedation time was 14 minutes. Right radial artery access was obtained using Seldinger technique. A 6-Cambodian sheath was placed. Catheters and wires were floated in the ascending aorta under fluoroscopic guidance. The patient received verapamil and heparin per protocol. FINDINGS: 1. Hemodynamics: a.Left ventricular end-diastolic pressure is 20 mm. There is no significant gradient across the aortic valve. b.Left ventriculogram: Left ventriculogram is not performed. 2. Angiographic Data: a.Right coronary artery: Right coronary artery is a large dominant vessel and the previously stented segment appears patent with mild nonobstructive plaque in its midportion. b.Left main coronary artery appears normal size, divides into left anterior descending coronary artery and circumflex coronary artery. c.Circumflex coronary artery shows a focal 95% stenosis. LAD and its branches are free of significant . CONCLUSIONS: Patent stent within the right coronary artery and focal 95% stenosis involving circumflex coronary artery. PLAN: Dr. Beckman will proceed with angioplasty and stent of circ. MMODL / IJN: [id number] /
[2024-08-07] MEDS ORDERED: ATORVASTATIN 20 MG TAB PO SCH (21:00)
[2024-08-07] MEDS: EZETIMIBE 10 MG TAB PO SCH (21:15)
[2024-08-07] MEDS: TICAGRELOR 90 MG TAB PO SCH (21:15)
[2024-08-07] MEDS: METOPROLOL SUCCINATE (ER) 50 MG TAB.ER.24H PO SCH (21:15)
[2024-08-07] MEDS: lisinopriL 5 MG TAB PO SCH (21:15)
[2024-08-07] MEDS: ATORVASTATIN 40 MG TAB PO SCH (21:15)
[2024-08-07] MEDS: ALBUTEROL NEBULIZED 2.5 MG/3 ML INHALATION PRN (21:28)
[2024-08-08 06:27] LABS: Glucose,Whole Blood 151 mg/dL (70-110)
--- NOTE | 2024-08-08 07:54 | P.PN ---
Subjective Progress Note Date: 08/08/24 This is a 69-year-old female patient who is known to our service from before with a past medical history significant for CAD with prior stenting with unknown details performed long time ago as well as diabetes and hypertension and dyslipidemia. She presented to the emergency department complaining of chest discomfort started last almost a week ago. She describes discomfort as a squeezing sensation in the middle of the chest with radiation to the neck and radiation to the back associated with shortness of breath and sweating but no presyncope or syncope and no dizziness or lightheadedness and no feeling of heart racing or fluttering. She underwent further evaluation including an EKG showing sinus mechanism with diffuse ST segment changes concerning for ischemia as well as troponin came to be abnormal consistent with acute coronary syndrome. She was started on aspirin and statin and heparin and beta-brenna with currently she is having chest discomfort about 3-4/10 in intensity. The chest x-ray did not show any acute abnormality. The rest of the blood work overall came in to be unremarkable with the physical examination is remarkable for regular rhythm with a systolic murmur at the right and left upper sternal border with clear breathing sounds bilaterally and no edema was noted in the lower extremities August 08, 2024 The patient was seen and evaluated this morning. She is not having any more chest pain or chest discomfort but she is experiencing shortness of breath could be secondary to Brilinta. She is not in heart failure. Also she is having some nausea and vomiting. The echo still pending. The physical examination has been the same and has not changed compared to before. She is on dual antiplatelet therapy along with intermediate intensity statin Assessment Acute non-ST ovation myocardial infarction History of CAD with prior stenting with unknown details and recently PCI of the LCx Multiple comorbid conditions including diabetes and hypertension and dyslipidemia Plan DC Brilinta and start the patient on Effient Increase the dose of statin to high intensity Follow-up on the echocardiogram Monitor the patient for additional 24 hours Objective - Vital Signs Vital signs: Vital Signs Temp 97.9 F 08/08/24 04:00 Pulse 82 08/08/24 04:47 Resp 19 08/08/24 04:00 BP 133/62 08/08/24 04:00 Pulse Ox 96 08/08/24 04:00 FiO2 Intake & Output 08/07/24 08/08/24 08/08/24 18:59 06:59 18:59 Intake Total 726.315 280 Balance 726.315 280 Weight 64.864 kg 68.3 kg Intake: IV 440 Invasive Line 1 10 Intake, IV Titration 46.315 Amount Heparin Sod,Pork in 0.45% 46.315 NaCl 25,000 unit In 0.45 % NaCl 1 250ml.bag @ 12 UNITS/KG/HR 7.784 mls/hr IV .Q24H [facility] Rx#: [id number] Oral 240 280 Other: Voiding Method Toilet # Voids 1 1 - Labs CBC & Chem 7: 08/07/24 07:04 08/07/24 07:04 Labs: Abnormal Lab Results - Last 24 Hours (Table) 08/07/24 08/07/24 08/07/24 Range/Units 07:04 07:04 11:14 Plt Count 144 L (150-450) k/uL Neutrophils # (Manual) 8.40 H (1.3-7.7) k/uL APTT 30.8 H (22.0-30.0) sec Chloride 111 H (98-107) mmol/L POC Glucose (mg/dL) (70-110) mg/dL AST 39 H (14-36) U/L Total Protein 5.9 L (6.3-8.2) g/dL 08/07/24 08/08/24 Range/Units 19:15 06:25 Plt Count (150-450) k/uL Neutrophils # (Manual) (1.3-7.7) k/uL APTT (22.0-30.0) sec Chloride (98-107) mmol/L POC Glucose (mg/dL) 219 H 151 H (70-110) mg/dL AST (14-36) U/L Total Protein (6.3-8.2) g/dL
[2024-08-08 08:15] LABS: African American GFR (CKD) >90 (>60 ml/min/1.73 sqM); Anion Gap 10 mmol/L; Blood Urea Nitrogen 14 mg/dL (7-17); Calcium 8.8 mg/dL (8.4-10.2); Carbon Dioxide 22 mmol/L (22-30); Chloride 107 mmol/L (98-107); Glucose 170 mg/dL (74-99); Non-African American GFR(CKD) >90 (>60 ml/min/1.73 sqM); Potassium 4.3 mmol/L (3.5-5.1); Sodium 139 mmol/L (137-145)
[2024-08-08 08:18] LABS: HGB 13.4 gm/dL (11.4-16.0); MCH 29.1 pg (25.0-35.0); MCHC 32.6 g/dL (31.0-37.0); MCV 89.3 fL (80.0-100.0); Mean Platelet Volume 7.4; Platelet Count 120 k/uL (150-450); RBC 4.59 m/uL (3.80-5.40)
[2024-08-08 08:24] VITALS: RESP 16
[2024-08-08 08:26] LABS: African American GFR (CKD) >90 (>60 ml/min/1.73 sqM); Non-African American GFR(CKD) >90 (>60 ml/min/1.73 sqM)
[2024-08-08 08:56] LABS: Eosinophils # (M) 0.07 k/uL (0-0.7); Lymphocytes # (M) 1.05 k/uL (1.0-4.8); Monocytes # (M) 0.28 k/uL (0-1.0); Neutrophils # (M) 5.67 k/uL (1.3-7.7); Neutrophils % (M) 81 %; Nucleated Red Blood Cells 0 /100 WBC (0-0); RBC Morphology Normal; Total Cells Counted 200
[2024-08-08] MEDS: ONDANSETRON 4 MG/2 ML VIAL IVP PRN (10:28)
[2024-08-08 10:35] VITALS: BMI 23.6
[2024-08-08] MEDS: PRASUGREL 10 MG TAB PO SCH (10:49)
[2024-08-08 11:13] LABS: Glucose,Whole Blood 139 mg/dL (70-110)
--- NOTE | 2024-08-08 12:06 | CA ---
Transthoracic Echo Report Name: Daphnie Tamayo Age: 69 Gender: F : 1955 Exam Date: 08/08/2024 09:13 Exam Location: [place] [facility] Ht (in): 67 Wt (lb): 143 Ordering Physician: Khurram Sofia MD Attending/Referring Phys: Tufting Machine Operator Humberto Blankenship RDCS Procedure CPT: Indications: nstemi Cardiac Hx: Technical Quality: Fair Contrast 1: Definity Total Dose (mL): 2 Contrast 2: Total Dose (mL): MEASUREMENTS (Male / Female) Normal Values 2D ECHO LV Diastolic Diameter PLAX 5.0 cm 4.2 - 5.9 / 3.9 - 5.3 cm LV Systolic Diameter PLAX 3.7 cm IVS Diastolic Thickness 0.7 cm 0.6 - 1.0 / 0.6 - 0.9 cm LVPW Diastolic Thickness 0.7 cm 0.6 - 1.0 / 0.6 - 0.9 cm LV Relative Wall Thickness 0.3 RV Internal Dim ED PLAX 2.7 cm LVOT Diameter 1.5 cm LA Systolic Diameter LX 2.8 cm 3.0 - 4.0 / 2.7 - 3.8 cm LV Diastolic Volume MOD BP 120.4 cm??? 67 - 155 / 56 - 104 cm??? LV Systolic Volume MOD BP 61.6 cm??? 22 - 58 / 19 - 49 cm??? LV Ejection Fraction MOD BP 48.9 % >= 55 % LV Diastolic Volume MOD 4C 126.5 cm??? LV Systolic Volume MOD 4C 68.1 cm??? LV Ejection Fraction MOD 4C 46.1 % LV Diastolic Length 4C 8.3 cm LV Systolic Length 4C 7.1 cm LV Diastolic Volume MOD 2C 108.6 cm??? LV Systolic Volume MOD 2C 52.1 cm??? LV Ejection Fraction MOD 2C 52.0 % LV Diastolic Length 2C 7.8 cm LV Systolic Length 2C 6.6 cm LA Volume 29.6 cm??? 18 - 58 / 22 - 52 cm??? LA Volume Index 16.9 cm???/m??? 16 - 28 cm???/m??? DOPPLER LVOT Peak Velocity 93.9 cm/s LVOT Peak Gradient 3.5 mmHg LVOT Velocity Time Integral 18.9 cm LVOT Stroke Volume 33.0 cm??? LVOT Stroke Volume Index 18.8 ml/m??? MV Area PHT 3.8 cm??? Mitral E Point Velocity 51.3 cm/s Mitral A Point Velocity 85.3 cm/s Mitral E to A Ratio 0.6 MV Deceleration Time 198.8 ms Right Atrial Pressure 10.0 mmHg FINDINGS Left Ventricle Left ventricular ejection fraction is estimated at 55%. Normal left ventricular systolic function with no obvious regional wall motion abnormalities. Left ventricular wall thickness normal. Right Ventricle Normal right ventricular size and function. Unable to estimate the right ventricular systolic pressure. Right Atrium Normal right atrial size. Left Atrium Normal left atrial size. Mitral Valve Mitral valve thickened. No mitral stenosis. Mild mitral regurgitation. Aortic Valve Trileaflet aortic valve. No aortic valve stenosis or regurgitation. Tricuspid Valve Structurally normal tricuspid valve. No tricuspid stenosis. No tricuspid regurgitation. Pulmonic Valve Structurally normal pulmonic valve. No pulmonic stenosis. Mild pulmonic regurgitation. Pericardium No pericardial effusion. No pleural effusion. Aorta Aortic root and proximal ascending aorta not well visualized. CONCLUSIONS Normal LV function Previewed by: Dr. Cristian Simmons MD (Electronically Signed) Final Date: 08 August 2024 12:05
--- NOTE | 2024-08-08 12:24 | P.PN ---
Subjective Progress Note Date: 08/08/24 Subjective: Patient seen and examined at bedside. Complaining of some dyspnea with exertion. Denies any cough or wheezing. Also having some nausea. Denies any chest pain. Pertinent positives and negatives as discussed above, a complete review of systems was performed and all other systems are negative. Vitals Signs Reviewed. General: Nontoxic, no distress, appears at stated age Derm: Warm, dry Head: Atraumatic, normocephalic, symmetric Eyes: EOMI, no lid lag, anicteric sclera Mouth: No lip lesion, mucus membranes moist Cardiovascular: S1S2 reg, no murmur Lungs: CTA bilateral, no rhonchi, no rales, no accessory muscle use Abdominal: Soft, nontender to palpation, no guarding, no appreciable organomegaly Ext: No gross muscle atrophy, no edema, no contractures Neuro: CN II-XI grossly intact, no focal neuro deficits Psych: Alert, oriented, appropriate affect Data Reviewed Today: Pertinent Labs: WBC 7, hemoglobin 13.4, platelet 120, potassium 4.3, creatinine 0.68, magnesium 2, A1c 7.6. Imaging: Echocardiogram report reviewed, showed normal LV function. Assessment and Plan: Active: Acute NSTEMI status post left circumflex stent History of CAD status post multiple stents Hypertension Dyslipidemia Mild thrombocytopenia, monitor for bleeding -On aspirin 81 mg, Effient 10 mg daily -Cardiology note reviewed, started on atorvastatin 80 nightly -Continue ezetimibe 10 nightly, lisinopril 5 nightly, metoprolol 50 nightly Type 2 diabetes -Continue sliding scale insulin, ACHS, monitor for hypoglycemia GERD -Continue famotidine 40 nightly DVT ppx: heparin sq Code status: full code Anticipated discharge place:home Anticipated discharge time: tomorrow Objective - Vital Signs Vital signs: Vital Signs Temp 97.7 F 08/08/24 11:12 Pulse 88 08/08/24 11:32 Resp 16 08/08/24 11:12 BP 119/70 08/08/24 11:12 Pulse Ox 98 08/08/24 11:12 FiO2 Intake & Output 08/07/24 08/08/24 08/08/24 18:59 06:59 18:59 Intake Total 726.315 280 480 Balance 726.315 280 480 Weight 64.864 kg 68.3 kg 68.3 kg Intake: IV 440 Invasive Line 1 10 Intake, IV Titration 46.315 Amount Heparin Sod,Pork in 0.45% 46.315 NaCl 25,000 unit In 0.45 % NaCl 1 250ml.bag @ 12 UNITS/KG/HR 7.784 mls/hr IV .Q24H [facility] Rx#: [id number] Oral 240 280 480 Other: Voiding Method Toilet Toilet # Voids 1 1 3 - Labs CBC & Chem 7: 08/08/24 07:26 08/08/24 07:26 Labs: Abnormal Lab Results - Last 24 Hours (Table) 08/07/24 08/08/24 08/08/24 Range/Units 19:15 06:25 07:26 Plt Count (150-450) k/uL Glucose (74-99) mg/dL POC Glucose (mg/dL) 219 H 151 H (70-110) mg/dL Hemoglobin A1c 7.6 H (<=6.0) % 08/08/24 08/08/24 08/08/24 Range/Units 07:26 07:26 11:10 Plt Count 120 L (150-450) k/uL Glucose 170 H (74-99) mg/dL POC Glucose (mg/dL) 139 H (70-110) mg/dL Hemoglobin A1c (<=6.0) %
[2024-08-08] MEDS: HEPARIN SODIUM,PORCINE 5,000 UNIT/ML 1 ML VIAL SQ SCH (15:21)
[2024-08-08 15:32] LABS: Chol/HDL Ratio 3.05 Ratio; LDL Cholesterol,Calculated 36.8 mg/dL (0.0-131.0)
[2024-08-08 16:19] LABS: Glucose,Whole Blood 196 mg/dL (70-110)
[2024-08-08 19:51] LABS: Glucose,Whole Blood 184 mg/dL (70-110)
[2024-08-08] MEDS: SYMBICORT 80-4.5 MCG INHALER INHALATION SCH (20:21)
[2024-08-08] MEDS: FAMOTIDINE 20 MG TAB PO SCH (20:40)
[2024-08-08] MEDS: ATORVASTATIN 80 MG TAB PO SCH (20:41)
[2024-08-09 05:54] LABS: Glucose,Whole Blood 127 mg/dL (70-110)
[2024-08-09 06:37] VITALS: TEMP 97.9
--- NOTE | 2024-08-09 06:57 | P.PN ---
Subjective Progress Note Date: 08/09/24 This is a 69-year-old female patient who is known to our service from before with a past medical history significant for CAD with prior stenting with unknown details performed long time ago as well as diabetes and hypertension and dyslipidemia. She presented to the emergency department complaining of chest discomfort started last almost a week ago. She describes discomfort as a squeezing sensation in the middle of the chest with radiation to the neck and radiation to the back associated with shortness of breath and sweating but no presyncope or syncope and no dizziness or lightheadedness and no feeling of heart racing or fluttering. She underwent further evaluation including an EKG showing sinus mechanism with diffuse ST segment changes concerning for ischemia as well as troponin came to be abnormal consistent with acute coronary syndrome. She was started on aspirin and statin and heparin and beta-brenna with currently she is having chest discomfort about 3-4/10 in intensity. The chest x-ray did not show any acute abnormality. The rest of the blood work overall came in to be unremarkable with the physical examination is remarkable for regular rhythm with a systolic murmur at the right and left upper sternal border with clear breathing sounds bilaterally and no edema was noted in the lower extremities August 08, 2024 The patient was seen and evaluated this morning. She is not having any more chest pain or chest discomfort but she is experiencing shortness of breath could be secondary to Brilinta. She is not in heart failure. Also she is having some nausea and vomiting. The echo still pending. The physical examination has been the same and has not changed compared to before. She is on dual antiplatelet therapy along with intermediate intensity statin August 09, 2024 The patient was seen and evaluated. She is asymptomatic. She is stable hemodynamically. The nausea and vomiting have resolved completely after we switch her from Effient from Brilinta. The echo showed normal LV systolic function with no significant wall motion abnormalities. She is on dual antiplatelet therapy along with a statin. From the cardiovascular standpoint of view, the patient can be discharged home Assessment Acute non-ST ovation myocardial infarction History of CAD with prior stenting with unknown details and recently PCI of the LCx Multiple comorbid conditions including diabetes and hypertension and dyslipidemia Plan Continue the current medical regimen The patient can be discharged home Objective - Vital Signs Vital signs: Vital Signs Temp 97.9 F 08/09/24 04:00 Pulse 82 08/09/24 04:00 Resp 16 08/09/24 04:00 BP 109/71 08/09/24 04:00 Pulse Ox 96 08/09/24 04:00 FiO2 Intake & Output 08/08/24 08/08/24 08/09/24 06:59 18:59 06:59 Intake Total 280 720 20 Balance 280 720 20 Weight 68.3 kg 68.3 kg 67.3 kg Intake: IV 20 Invasive Line 1 20 Oral 280 720 Other: Voiding Method Toilet Toilet Toilet # Voids 1 3 2 - Labs CBC & Chem 7: 08/08/24 07:26 08/08/24 07:26 Labs: Abnormal Lab Results - Last 24 Hours (Table) 08/08/24 08/08/24 08/08/24 Range/Units 07:26 07:26 07:26 Plt Count 120 L (150-450) k/uL Glucose (74-99) mg/dL POC Glucose (mg/dL) (70-110) mg/dL Hemoglobin A1c 7.6 H (<=6.0) % Triglycerides 169.00 H (0.00-149.00) mg/dL HDL Cholesterol 34.40 L (40.00-60.00) mg/dL 08/08/24 08/08/24 08/08/24 Range/Units 07:26 11:10 16:16 Plt Count (150-450) k/uL Glucose 170 H (74-99) mg/dL POC Glucose (mg/dL) 139 H 196 H (70-110) mg/dL Hemoglobin A1c (<=6.0) % Triglycerides (0.00-149.00) mg/dL HDL Cholesterol (40.00-60.00) mg/dL 08/08/24 08/09/24 Range/Units 19:50 05:52 Plt Count (150-450) k/uL Glucose (74-99) mg/dL POC Glucose (mg/dL) 184 H 127 H (70-110) mg/dL Hemoglobin A1c (<=6.0) % Triglycerides (0.00-149.00) mg/dL HDL Cholesterol (40.00-60.00) mg/dL
[2024-08-09 08:09] VITALS: BP 119/70; PULSE 101
--- NOTE | 2024-08-09 11:22 | P.DS ---
Providers Date of admission: 08/06/24 22:28 Attending physician: Veronika Spangler MD Consults: 08/06/24 22:28 Consult Physician Routine Consulting Provider: Cardiology [facility] Consult Reason/Comments: NSTEMI Do you want consulting provider notified?: Yes 08/07/24 15:12 Consult Physician Routine Consulting Provider: Cardiology Pushpa Consult Reason/Comments: Post Interventional Patient Do you want consulting provider notified?: Already Contacted Primary care physician: Tee Wilder MD Hospital Course: Discharge Diagnosis: Acute NSTEMI status post stenting of the mid LCx, drug-eluting stent, 08/07/2024 History of CAD with prior stenting Type 2 diabetes not on insulin HTN Dyslipidemia Hospital Course: Patient is a 69-year-old female with a PMH of CAD status post multiple stents, COPD, type II DM, hyperlipidemia, GERD who presents to the emergency room for chest discomfort. Patient reports that she has been experiencing intermittent chest tightness over the past 5 days. Patient notes the pain is 8 out of 10 at maximal intensity, substernal, squeezing in nature, radiating to the right arm. Notes that the pain was initially intermittent and started on Sunday but that it worsened over the past 24 hours. Denies experiencing shortness of breath, fever, chills, cough, nausea, vomiting, dizziness, or palpitations. Reports that her pain is 4 out of 10 at the time of interview. EKG in the emergency room revealed sinus tachycardia at [address] segment depression in leads V3 to V5 as reviewed by me. Chest x-ray revealed findings of COPD. Laboratory evaluation revealed a troponin of 0.469, glucose 319, chloride 108, CO2 18. Patient was admitted for management of acute NSTEMI, taken to [facility], successful stenting of the mid LCx with drug-eluting stent on 08/07/1974, started on dual antiplatelet with aspirin and prasugrel for at least 12-month, high intensity statins, atorvastatin increased to 80 mg nightly, continued on ezetimibe 10 mg nightly, lisinopril 5 nightly, metoprolol 50 nightly. TTE showed normal LV function Patient discharged in stable condition, cleared by cardiology. Patient to follow-up with PCP and cardiology, heart healthy diet, continue the above medications. Patient seen and examined at bedside. Vital signs reviewed and stable. General: Nontoxic, no distress, appears at stated age Derm: Warm, dry Head: Atraumatic, normocephalic, symmetric Eyes: EOMI, no lid lag, anicteric sclera Mouth: No lip lesion, mucus membranes moist Cardiovascular: S1S2 reg, no murmur Lungs: CTA bilateral, no rhonchi, no rales, no accessory muscle use Abdominal: Soft, nontender to palpation, no guarding, no appreciable organomegaly Ext: No gross muscle atrophy, no edema, no contractures Neuro: CN II-XI grossly intact, no focal neuro deficits Psych: Alert, oriented, appropriate affect A total of 40 minutes of time were spent preparing this complex discharge summary. Patient was discharged on 08/09/24. Patient Condition at Discharge: Serious Plan - Discharge Summary Discharge Rx Participant: Yes New Discharge Prescriptions: New Aspirin 81 mg PO DAILY #30 tab Atorvastatin [Lipitor] 80 mg PO HS #30 tab Nitroglycerin Sl Tabs [Nitrostat] 0.4 mg SUBLINGUAL Q5M PRN #30 tab PRN Reason: Chest Pain Prasugrel [Effient] 10 mg PO DAILY #30 tab Continue Famotidine [Pepcid] 40 mg PO HS Repaglinide [Prandin] 1 mg PO AC-BID sitaGLIPtin [Januvia] 100 mg PO DAILY lisinopriL [Zestril] 5 mg PO HS Ezetimibe [Zetia] 10 mg PO HS Empagliflozin [Jardiance] 25 mg PO DAILY Dulaglutide [Trulicity] 4.5 mg SQ SA Metoprolol Succinate (ER) [Toprol XL] 50 mg PO HS Discontinued Atorvastatin [Lipitor] 20 mg PO HS Discharge Medication List Famotidine [Pepcid] 40 mg PO HS 09/26/13 [History] Ezetimibe [Zetia] 10 mg PO HS 03/31/22 [History] Dulaglutide [Trulicity] 4.5 mg SQ SA 08/07/24 [History] Empagliflozin [Jardiance] 25 mg PO DAILY 08/07/24 [History] Metoprolol Succinate (ER) [Toprol XL] 50 mg PO HS 08/07/24 [History] Repaglinide [Prandin] 1 mg PO AC-BID 08/07/24 [History] lisinopriL [Zestril] 5 mg PO HS 08/07/24 [History] sitaGLIPtin [Januvia] 100 mg PO DAILY 08/07/24 [History] Aspirin 81 mg PO DAILY #30 tab 08/09/24 [Rx] Atorvastatin [Lipitor] 80 mg PO HS #30 tab 08/09/24 [Rx] Nitroglycerin Sl Tabs [Nitrostat] 0.4 mg SUBLINGUAL Q5M PRN #30 tab 08/09/24 [Rx] Prasugrel [Effient] 10 mg PO DAILY #30 tab 08/09/24 [Rx] Follow up Appointment(s)/Referral(s): Jim Beckman MD [STAFF PHYSICIAN] - 1 Week Tee Wilder MD [Primary Care Provider] - 1-2 days Patient Instructions/Handouts: Heart Healthy Diet (DC), Low-Sodium Diet (DC) Discharge Disposition: HOME SELF-CARE
== END 2024-08-09 12:09 | disposition home or self-care (01) | DRG 322 ==
LOC: EC 19:27 → 3SCARD 22:28
PROVIDERS: ADMIT Internal Medicine; ATTEND Internal Medicine
PROC: B2111ZZ Fluoroscopy of Multiple Coronary Arteries using Low Osmolar Contrast (ICD-10-PCS; 2024-08-07)
PROC: 0270346 Dilation of Coronary Artery, One Artery, Bifurcation, with Drug-eluting Intraluminal Device, Percutaneous Approach (ICD-10-PCS; principal; 2024-08-07 13:43)
PROC: B240ZZ3 Ultrasonography of Single Coronary Artery, Intravascular (ICD-10-PCS; 2024-08-07 13:43)
PROC: 4A023N7 Measurement of Cardiac Sampling and Pressure, Left Heart, Percutaneous Approach (ICD-10-PCS; 2024-08-07 13:43)
DX: I21.4 Non-ST elevation (NSTEMI) myocardial infarction (principal); D69.6 Thrombocytopenia, unspecified; J84.10 Pulmonary fibrosis, unspecified; E11.9 Type 2 diabetes mellitus without complications; J44.9 Chronic obstructive pulmonary disease, unspecified; I10 Essential (primary) hypertension; Z79.4 Long term (current) use of insulin; I25.10 Atherosclerotic heart disease of native coronary artery without angina pectoris; K21.9 Gastro-esophageal reflux disease without esophagitis; E78.5 Hyperlipidemia, unspecified; I25.2 Old myocardial infarction; Z95.5 Presence of coronary angioplasty implant and graft; Z79.02 Long term (current) use of antithrombotics/antiplatelets; Z79.84 Long term (current) use of oral hypoglycemic drugs; Z79.899 Other long term (current) drug therapy
CPT/HCPCS: 36415; 71046; 80048; 80053; 80061; 82375; 82565; 83036; 83735; 84443; 84484; 85025; 85610; 85730; 93005; 93306; 93458; 93799; 94640; 96361; 96365; 96366; 96375; 96376; 99291